=== PATIENT | female | born 1945 | race Caucasian/White ===

== ENCOUNTER 2018-04-05 08:28 | Inpatient (IN) | payer OTHER, BC ==
--- NOTE | 2018-04-05 08:36 | EDPHY ---
H & P Time Seen by Provider: 04/05/18 08:34 HPI/ROS: CHIEF COMPLAINT: [] HISTORY OF PRESENT ILLNESS: [] Severity: [] Modifying factors: [] REVIEW OF SYSTEMS: Constitutional: denies: chills, fever, recent illness, recent injury EENTM: denies: blurred vision, double vision, nose congestion Respiratory: denies: cough, shortness of breath Cardiac: denies: chest pain, irregular heart rate, lightheadedness, palpitations Gastrointestinal/Abdominal: denies: abdominal pain, diarrhea, nausea, vomiting, blood streaked stools Genitourinary: denies: dysuria, frequency, hematuria, pain Musculoskeletal: denies: joint pain, muscle pain Skin: denies: lesions, rash, jaundice, bruising Neurological: denies: headache, numbness, paresthesia, tingling, dizziness, weakness Hematologic/Lymphatic: denies: blood clots, easy bleeding, easy bruising Immunologic/allergic: denies: HIV/AIDS, transplant 10 systems reviewed and negative except as noted EXAM: GENERAL: Well-appearing, well-nourished and in no acute distress. HEAD: Atraumatic, normocephalic. EYES: Pupils equal round and reactive to light, extraocular movements intact, sclera anicteric, conjunctiva are normal. ENT: TMs normal, nares patent, oropharynx clear without exudates. Moist mucous membranes. NECK: Normal range of motion, supple without lymphadenopathy or JVD. LUNGS: Breath sounds clear to auscultation bilaterally and equal. No wheezes rales or rhonchi. HEART: Regular rate and rhythm without murmurs, rubs or gallops. ABDOMEN: Soft, nontender, normoactive bowel sounds. No guarding, no rebound. No masses appreciated. BACK: No CVA tenderness, no spinal tenderness, step-offs or deformities EXTREMITIES: Normal range of motion, no pitting or edema. No clubbing or cyanosis. NEUROLOGICAL: Cranial nerves II through XII grossly intact. Normal speech, normal gait. 5/5 strength, normal movement in all extremities, normal sensation , normal reflexes PSYCH: Normal mood, normal affect. SKIN: Warm, dry, normal turgor, no visible rashes or lesions. Source: Patient, EMS Exam Limitations: No limitations Departure - Departure Referrals: Patient,NotPresent [Primary Care Provider] - As per Instructions
--- NOTE | 2018-04-05 08:40 | EDPHY ---
H & P Time Seen by Provider: 04/05/18 08:34 HPI/ROS: CHIEF COMPLAINT: Fever HISTORY OF PRESENT ILLNESS: The patient is a 72-year-old female who was brought in by EMS for a fever. She has a history of lupus, MRSA, CVA and renal failure secondary to diuretic overdose. She has chronic lower extremity edema and leg wounds that are managed by wound care. Her home health nurse found her today with a fever and slightly confused. She denies abdominal pain. She denies nausea vomiting or diarrhea. She denies chest pain or shortness of breath. She denies headache. She also has a history of multiple surgeries including appendectomy and hysterectomy as well as partial colectomy post ruptured diverticulum. She is followed by Dr[facility] for a skin tear to her lower leg. Severity: Moderate Modifying factors: None REVIEW OF SYSTEMS: Unable to obtain secondary to condition EXAM: GENERAL: Slightly confused, mumbling, obese, eyes closed HEAD: Atraumatic, normocephalic. EYES: Pupils equal round and reactive to light, extraocular movements intact, sclera anicteric, conjunctiva are normal. ENT: TMs normal, nares patent, oropharynx clear without exudates. Moist mucous membranes. NECK: Normal range of motion, supple without lymphadenopathy or JVD. LUNGS: Breath sounds clear to auscultation bilaterally and equal. No wheezes rales or rhonchi. HEART: Regular rate and rhythm without murmurs, rubs or gallops. ABDOMEN: Soft, nontender, normoactive bowel sounds. No guarding, no rebound. No masses appreciated. BACK: No CVA tenderness, no spinal tenderness, step-offs or deformities EXTREMITIES: Bilateral lower extremity edema, right side with erythema and warmth, some small blistering to the medial thigh. Consistent with cellulitis NEUROLOGICAL: Cranial nerves II through XII grossly intact. Normal speech, normal gait. 5/5 strength, normal movement in all extremities, normal sensation , normal reflexes PSYCH: Difficulty answering questions SKIN: See above no decubitus ulcers Source: Patient, EMS, Old records Exam Limitations: No limitations - Medical/Surgical History Hx Asthma: No Hx Chronic Respiratory Disease: No Hx Diabetes: No Hx Cardiac Disease: No Hx Renal Disease: Yes Hx Cirrhosis: No Hx Alcoholism: No Hx HIV/AIDS: No Hx Splenectomy or Spleen Trauma: No Other PMH: Lupus, MRSA, CVA, renal failure, appendectomy, hysterectomy, colectomy, orthopedic surgeries - Family History Significant Family History: No pertinent family hx - Social History Smoking Status: Unknown if ever smoked Alcohol Use: Sober Drug Use: None Constitutional: Initial Vital Signs Temperature (C) 38.6 C H 04/05/18 08:44 Heart Rate 93 04/05/18 08:44 Respiratory Rate 20 04/05/18 08:44 Blood Pressure 165/100 H 04/05/18 08:44 O2 Sat (%) 97 04/05/18 08:44 O2 Delivery Mode Nasal Cannula O2 (L/minute) 2 Allergies/Adverse Reactions: No Known Drug Allergies Allergy (Verified 04/05/18 08:46) Medical Decision Making - Diagnostics Imaging Results: Imaging Impressions Chest X-Ray 04/05/18 08:35 Impression: Cardiomegaly. Pulmonary vascular congestion suggests chronic congestive failure. Right shoulder dislocation.. Imaging: Discussed imaging studies w/ call or contact centre team leader Radiologist ED Course/Re-evaluation: Patient has a urinary tract infection. She also has cellulitis to right leg. I will start her on cefepime and vancomycin admit to the medical service. I spoke with the medical service who will admit to Dr. Jurado. Differential Diagnosis: Partial list of the Differential diagnosis considered include but were not limited to; cellulitis, urinary tract infection, sepsis and although unlikely based on the history and physical exam, I also considered pneumonia, meningitis. I discussed these differential diagnoses and the plan with the [ patient] as well as the usual and expected course. The [patient understands] that the diagnosis is provisional and that in medicine we are not always correct and that further workup is often warranted. Usual and customary warnings were given. All of the [patient's] questions were answered. The [ patient was] instructed to return to the emergency department should the symptoms at all worsen or return, otherwise to followup with the physician as we discussed. - Data Points Laboratory Results: Laboratory Results 04/05/18 08:30 04/05/18 08:30 04/05/18 04/05/18 04/05/18 08:55 08:50 08:30 WBC RBC Hgb Hct MCV MCH MCHC RDW Plt Count MPV Neut % (Auto) Lymph % (Auto) [place] % (Auto) Eos % (Auto) Baso % (Auto) Nucleat RBC Rel Count Absolute Neuts (auto) Absolute Lymphs (auto) Absolute Monos (auto) Absolute Eos (auto) Absolute Basos (auto) Absolute Nucleated RBC Immature Gran % Immature Gran # RBC/WBC/PLT Morphology Platelet Estimate PT INR APTT VBG Lactic Acid 1.6 mmol/L mmol/L (0.7-2.1) Sodium Potassium Chloride Carbon Dioxide Anion Gap BUN Creatinine Estimated GFR Glucose Calcium Magnesium 1.7 mg/dL mg/dL (1.6-2.3) Total Bilirubin Urine Color YELLOW Urine Appearance HAZY Urine pH 7.0 (5.0-7.5) Ur Specific [place] 1.018 (1.002-1.030) Urine Protein NEGATIVE (NEGATIVE) Urine Ketones NEGATIVE (NEGATIVE) Urine Blood NEGATIVE (NEGATIVE) Urine Nitrate POSITIVE H (NEGATIVE) Urine Bilirubin NEGATIVE (NEGATIVE) Urine Urobilinogen NEGATIVE EU EU (0.2-1.0) Ur Leukocyte Esterase TRACE H (NEGATIVE) Urine RBC 10-15 /hpf H /hpf (0-3) Urine WBC 10-15 /hpf H /hpf (0-3) Ur Epithelial Cells TRACE /lpf /lpf (NONE-1+) Urine Bacteria 4+ /hpf H /hpf (NONE SEEN) Urine Mucus TRACE /lpf /lpf (NONE-1+) Urine Glucose NEGATIVE (NEGATIVE) 04/05/18 04/05/18 04/05/18 08:30 08:30 08:30 WBC 19.48 10^3/uL H 10^3/uL (3.80-9.50) RBC 4.30 10^6/uL 10^6/uL (4.18-5.33) Hgb 12.5 g/dL L g/dL (12.6-16.3) Hct 38.4 % % (38.0-47.0) MCV 89.3 fL fL (81.5-99.8) MCH 29.1 pg pg (27.9-34.1) MCHC 32.6 g/dL g/dL (32.4-36.7) RDW 15.0 % % (11.5-15.2) Plt Count 253 10^3/uL 10^3/uL (150-400) MPV 10.9 fL fL (8.7-11.7) Neut % (Auto) 90.4 % H % (39.3-74.2) Lymph % (Auto) 2.4 % L % (15.0-45.0) [place] % (Auto) 5.5 % % (4.5-13.0) Eos % (Auto) 0.5 % L % (0.6-7.6) Baso % (Auto) 0.4 % % (0.3-1.7) Nucleat RBC Rel Count 0.0 % % (0.0-0.2) Absolute Neuts (auto) 17.61 10^3/uL H 10^3/uL (1.70-6.50) Absolute Lymphs (auto) 0.47 10^3/uL L 10^3/uL (1.00-3.00) Absolute Monos (auto) 1.07 10^3/uL H 10^3/uL (0.30-0.80) Absolute Eos (auto) 0.10 10^3/uL 10^3/uL (0.03-0.40) Absolute Basos (auto) 0.08 10^3/uL 10^3/uL (0.02-0.10) Absolute Nucleated RBC 0.00 10^3/uL 10^3/uL (0-0.01) Immature Gran % 0.8 % % (0.0-1.1) Immature Gran # 0.16 10^3/uL H 10^3/uL (0.00-0.10) RBC/WBC/PLT Morphology TNP Platelet Estimate TNP PT 13.9 SEC SEC (12.0-15.0) INR 1.05 (0.83-1.16) APTT 25.5 SEC SEC (23.0-38.0) VBG Lactic Acid Sodium 138 mEq/L mEq/L (135-145) Potassium 2.9 mEq/L L mEq/L (3.3-5.0) Chloride 94 mEq/L L mEq/L (97-110) Carbon Dioxide 33 mEq/l H mEq/l (22-31) Anion Gap 11 mEq/L mEq/L (8-16) BUN 24 mg/dL H mg/dL (7-23) Creatinine 0.9 mg/dL mg/dL (0.6-1.0) Estimated GFR > 60 Glucose 119 mg/dL H mg/dL (70-100) Calcium 9.4 mg/dL mg/dL (8.5-10.4) Magnesium Total Bilirubin 0.6 mg/dL mg/dL (0.1-1.4) Urine Color Urine Appearance Urine pH Ur Specific [place] Urine Protein Urine Ketones Urine Blood Urine Nitrate Urine Bilirubin Urine Urobilinogen Ur Leukocyte Esterase Urine RBC Urine WBC Ur Epithelial Cells Urine Bacteria Urine Mucus Urine Glucose Medications Given: Acetaminophen (Tylenol) 650 mg PO Q4HRS PRN PRN Reason: Pain, Mild/Fever, Can Take PO Stop: 10/02/18 10:50 Last Admin: 04/05/18 11:25 Dose: 650 mg Oxycodone HCl (Oxycodone Ir) 5 mg PO Q4HRS PRN PRN Reason: Pain, Severe Able to Take PO Stop: 04/15/18 12:53 Last Admin: 04/05/18 14:06 Dose: 5 mg Discontinued Medications Hydromorphone HCl (Dilaudid) 0.5 mg IVP EDNOW ONE Stop: 04/05/18 10:42 Last Admin: 04/05/18 10:43 Dose: 0.5 mg Hydromorphone HCl (Dilaudid) 0.5 mg IVP EDNOW ONE Stop: 04/05/18 11:06 Last Admin: 04/05/18 11:08 Dose: 0.5 mg Potassium Chloride (Potassium Cl 10 Meq (Premix)) 100 mls @ 100 mls/hr IV EDNOW ONE Stop: 04/05/18 10:59 Last Admin: 04/05/18 10:22 Dose: 100 mls Magnesium Sulfate (Magnesium Sulf 2 Gm (Premix)) 50 mls @ 50 mls/hr IV EDNOW ONE Stop: 04/05/18 10:59 Last Admin: 04/05/18 10:18 Dose: 50 mls Ceftriaxone Sodium/Dextrose (Rocephin 1 Gm (Premix)) 50 mls @ 100 mls/hr IV EDNOW ONE PRN Reason: Protocol Stop: 04/05/18 10:32 Last Admin: 04/05/18 10:14 Dose: 50 mls Vancomycin HCl 1 gm/ Sodium (Chloride) 250 mls @ 250 mls/hr IV ONCE ONE Stop: 04/05/18 11:29 Last Admin: 04/05/18 10:58 Dose: 250 mls Potassium Chloride (Potassium Chloride Oral Liquid) 20 meq PO EDNOW ONE Stop: 04/05/18 10:01 Last Admin: 04/05/18 10:15 Dose: 20 meq Departure - Departure Disposition: [facility] Acute Clinical Impression: Cellulitis of right leg, Hypokalemia Urinary tract infection Qualifiers: Urinary tract infection type: acute cystitis Hematuria presence: without hematuria Qualified Code(s): N30.00 - Acute cystitis without hematuria Condition: Fair
[2018-04-05 08:49] LABS: PLATELET COUNT 253 10^3/uL (150-400)
[2018-04-05 08:56] LABS: INR 1.05 (0.83-1.16); PROTIME(PATIENT) 13.9 SEC (12.0-15.0)
[2018-04-05] MEDS ORDERED: MAGNESIUM SULF 2 GM/WATER 50 ML IV ONE (10:00)
[2018-04-05] MEDS ORDERED: POTASSIUM Cl (KCl) 100 ML IV ONE (10:00)
[2018-04-05] MEDS ORDERED: POTASSIUM CL 20 MEQ/15 ML UDCUP PO ONE (10:00)
[2018-04-05] MEDS ORDERED: VANCOMYCIN HCL/NORMAL SALINE 250 ML IV ONE (10:04)
[2018-04-05] MEDS ORDERED: VANCOMYCIN 1 GM in NS 250 ML IV ONE (10:30)
[2018-04-05] MEDS ORDERED: HYDROmorphONE/DILAUDID 1 MG/ML INJ IVP ONE ×2 (10:41→11:05)
[2018-04-05] MEDS ORDERED: ONDANSETRON 4 MG/2 ML VIAL IVP PRN (10:51)
[2018-04-05] MEDS ORDERED: ONDANSETRON DISINTEGRATING 4 MG TAB PO PRN (10:51)
[2018-04-05] MEDS ORDERED: ACETAMINOPHEN 325 MG TAB PO PRN (10:51)
[2018-04-05] MEDS ORDERED: oxyCODONE IR 5 MG TAB PO PRN (12:54)
--- NOTE | 2018-04-05 13:26 | ASMTCMCOM ---
CM Note CM Note Notes: Chart reviewed. 72 year old female admitted via ED with fever after her C RN found her febrile and confused. Has POA per legal indicators, Kaveh Johnson [phone]. Plan of care TBD. Plan: TBD Date Signed: 04/05/2018 01:26 PM Electronically Signed By:Silvia Klein RN
--- NOTE | 2018-04-05 15:54 | ASMTCMCOM ---
CM Note CM Note Notes: Met with patient who reports she lives in a home and everything is on one level. She tells me her neighbor Kaveh Johnson is her caregiver and POA. She has [facility]. Plan of care undetermined at this time. CM to follow for needs. Will place referral in [facility] for her [facility] [employer]. Plan: TBD Date Signed: 04/05/2018 03:52 PM Electronically Signed By:Silvia Klein RN
--- NOTE | 2018-04-05 17:18 | PDGENHP ---
History and Physical - Chief Complaint fever - History of Present Illness 72yo F with SLE on plaquenil, chronic pain on opioids, venous insufficiency/ lower extremity wounds followed by Dr Gerber in ID clinic presents from home at [facility] wound RN due to fever and confusion. Patient is poor historian and not able to offer many details. She thinks she was feeling ok yesterday. Hasn't noticed any drainage from her right leg wounds, which are chronic. No significant increase in pain. She does note that her right leg is red which she attributes to her neuropathy. She denies fevers. Wants to go home. In the ED, she was found to have a fever with leukocytosis as well as RLE erythema. She was also noted to have an infected-appearing UA but denies any urinary symptoms. She was given a dose of vancomycin and ceftriaxone and admitted for further management. History Information - Allergies/Home Medication List Allergies/Adverse Reactions: No Known Drug Allergies Allergy (Verified 04/05/18 08:46) Home Medications: Aspirin [Aspirin 81mg (*)] 81 mg PO DAILY 04/05/18 [Last Taken Unknown] Atorvastatin Calcium [Lipitor 10 mg (*)] 10 mg PO DAILY 04/05/18 [Last Taken Unknown] Dexlansoprazole [Dexilant] 60 mg PO BID 04/05/18 [Last Taken Unknown] Estradiol [Estradiol 1 MG (*)] 1 mg PO DAILY 04/05/18 [Last Taken Unknown] Furosemide [Lasix 40 MG (*)] 40 mg PO DAILY 04/05/18 [Last Taken Unknown] Gabapentin [Neurontin 100 MG (*)] 400 - 500 mg PO HS 04/05/18 [Last Taken Unknown] Herbals/Supplements -Info Only 1 ea PO DAILY 04/05/18 [Last Taken Unknown] Hydrocodone/Acetaminophen [Blanket 5/325 (*)] 1 - 2 tab PO Q4H PRN 04/05/18 [Last Taken Unknown] Hydroxychloroquine Sulfate [Plaquenil 200 mg (*)] 200 mg PO BID 04/05/18 [Last Taken Unknown] Indapamide [Indapamide 2.5 mg (*)] 2.5 mg PO DAILY 04/05/18 [Last Taken Unknown] Lactobacillus Acidophilus [ACIDOPHILUS] 2 each PO BID 04/05/18 [Last Taken Unknown] Magnesium Oxide [Magnesium] 500 mg PO HS 04/05/18 [Last Taken Unknown] Naloxegol Oxalate [Movantik] 25 mg PO DAILY 04/05/18 [Last Taken Unknown] Polyethylene Glycol 3350 [Miralax 17 gm (*)] 17 gm PO DAILY 04/05/18 [Last Taken Unknown] No.137/Iron/Folic Acd [ Vitamin Tablet] 1 each PO DAILY [Last Taken Unknown] Sennosides/Docusate Sodium [Senna-S Tablet] 1 - 2 each PO DAILY PRN 04/05/18 [ Last Taken Unknown] medroxyPROGESTERone ACETATE [Medroxyprogesterone Acetate] 2.5 mg PO DAILY [Last Taken Unknown] oxyCODONE HCL [Oxycontin] 20 mg PO Q12H 04/05/18 [Last Taken Unknown] I have personally reviewed and updated: family history, medical history, social history, surgical history - Past Medical History Additional medical history: SLE/?RA, CVA, chronic LE edema and LE wounds, chronic pain on opioids, paroxysmal atrial fibrillation, L MSSA knee infection and bacteremia, Charcot arthropathy, peripheral neuropathy, GERD, anemia, R shoulder subluxation - Surgical History Additional surgical history: C3-7 and L4-5 spinal fusion, sigmoid colectomy d/t ruptured diverticulum, hernia repair, right total knee arthroplasty, left total knee arthroplasty s/p explantation and placement of spacer, L shoulder surgery, hysterectomy and BSO, - Family History Additional family history: father - kidney and colon cancer, Alzheimer's - Social History Smoking Status: Never smoked Alcohol Use: None Drug Use: None Review of Systems Review of Systems: ROS: 10pt was reviewed & negative except for what was stated in HPI & below Physical Exam Physical Exam: Temp Pulse Resp BP Pulse Ox 36.9 C 87 20 114/69 90 L 04/05/18 15:32 04/05/18 11:52 04/05/18 11:52 04/05/18 11:52 04/05/18 11:52 O2 (L/minute) 2.5 Constitutional: no apparent distress, not in pain, obese Eyes: PERRL, anicteric sclera, EOMI Ears, Nose, Mouth, Throat: no oral mucosal ulcers, dry mucous membranes Cardiovascular: regular rate and rhythym, no murmur, rub, or gallop, JVD ( unable to assess due to habitus), edema (chronic venous stasis changes to BLE) Respiratory: no respiratory distress, no rales or rhonchi, clear to auscultation Gastrointestinal: normoactive bowel sounds, soft, non-tender abdomen, no palpable masses Genitourinary: no bladder fullness, no bladder tenderness Skin: other (RLE venous stasis with significant xerosis and erythema from thigh down to foot, area of denuded skin on dorsal aspect of right foot) Neurologic: AAOx3 Lymph, Heme, Immunologic: other (no inguinal ISMAEL), No lymphangitic streaking Lab Data & Imaging Review 04/05/18 08:30 04/05/18 08:30 WBC 19.48 10^3/uL (3.80-9.50) H 04/05/18 08:30 RBC 4.30 10^6/uL (4.18-5.33) 04/05/18 08:30 Hgb 12.5 g/dL (12.6-16.3) L 04/05/18 08:30 Hct 38.4 % (38.0-47.0) 04/05/18 08:30 MCV 89.3 fL (81.5-99.8) 04/05/18 08:30 MCH 29.1 pg (27.9-34.1) 04/05/18 08:30 MCHC 32.6 g/dL (32.4-36.7) 04/05/18 08:30 RDW 15.0 % (11.5-15.2) 04/05/18 08:30 Plt Count 253 10^3/uL (150-400) 04/05/18 08:30 MPV 10.9 fL (8.7-11.7) 04/05/18 08:30 Neut % (Auto) 90.4 % (39.3-74.2) H 04/05/18 08:30 Lymph % (Auto) 2.4 % (15.0-45.0) L 04/05/18 08:30 [place] % (Auto) 5.5 % (4.5-13.0) 04/05/18 08:30 Eos % (Auto) 0.5 % (0.6-7.6) L 04/05/18 08:30 Baso % (Auto) 0.4 % (0.3-1.7) 04/05/18 08:30 Nucleat RBC Rel Count 0.0 % (0.0-0.2) 04/05/18 08:30 Absolute Neuts (auto) 17.61 10^3/uL (1.70-6.50) H 04/05/18 08:30 Absolute Lymphs (auto) 0.47 10^3/uL (1.00-3.00) L 04/05/18 08:30 Absolute Monos (auto) 1.07 10^3/uL (0.30-0.80) H 04/05/18 08:30 Absolute Eos (auto) 0.10 10^3/uL (0.03-0.40) 04/05/18 08:30 Absolute Basos (auto) 0.08 10^3/uL (0.02-0.10) 04/05/18 08:30 Absolute Nucleated RBC 0.00 10^3/uL (0-0.01) 04/05/18 08:30 Immature Gran % 0.8 % (0.0-1.1) 04/05/18 08:30 Immature Gran # 0.16 10^3/uL (0.00-0.10) H 04/05/18 08:30 RBC/WBC/PLT Morphology TNP 04/05/18 08:30 Platelet Estimate TNP 04/05/18 08:30 PT 13.9 SEC (12.0-15.0) 04/05/18 08:30 INR 1.05 (0.83-1.16) 04/05/18 08:30 APTT 25.5 SEC (23.0-38.0) 04/05/18 08:30 VBG Lactic Acid 1.6 mmol/L (0.7-2.1) 04/05/18 08:50 Sodium 138 mEq/L (135-145) 04/05/18 08:30 Potassium 2.9 mEq/L (3.3-5.0) L 04/05/18 08:30 Chloride 94 mEq/L (97-110) L 04/05/18 08:30 Carbon Dioxide 33 mEq/l (22-31) H 04/05/18 08:30 Anion Gap 11 mEq/L (8-16) 04/05/18 08:30 BUN 24 mg/dL (7-23) H 04/05/18 08:30 Creatinine 0.9 mg/dL (0.6-1.0) 04/05/18 08:30 Estimated GFR > 60 04/05/18 08:30 Glucose 119 mg/dL (70-100) H 04/05/18 08:30 Calcium 9.4 mg/dL (8.5-10.4) 04/05/18 08:30 Magnesium 1.7 mg/dL (1.6-2.3) 04/05/18 08:30 Total Bilirubin 0.6 mg/dL (0.1-1.4) 04/05/18 08:30 Urine Color YELLOW 04/05/18 08:55 Urine Appearance HAZY 04/05/18 08:55 Urine pH 7.0 (5.0-7.5) 04/05/18 08:55 Ur Specific [place] 1.018 (1.002-1.030) 04/05/18 08:55 Urine Protein NEGATIVE (NEGATIVE) 04/05/18 08:55 Urine Ketones NEGATIVE (NEGATIVE) 04/05/18 08:55 Urine Blood NEGATIVE (NEGATIVE) 04/05/18 08:55 Urine Nitrate POSITIVE (NEGATIVE) H 04/05/18 08:55 Urine Bilirubin NEGATIVE (NEGATIVE) 04/05/18 08:55 Urine Urobilinogen NEGATIVE EU (0.2-1.0) 04/05/18 08:55 Ur Leukocyte Esterase TRACE (NEGATIVE) H 04/05/18 08:55 Urine RBC 10-15 /hpf (0-3) H 04/05/18 08:55 Urine WBC 10-15 /hpf (0-3) H 04/05/18 08:55 Ur Epithelial Cells TRACE /lpf (NONE-1+) 04/05/18 08:55 Urine Bacteria 4+ /hpf (NONE SEEN) H 04/05/18 08:55 Urine Mucus TRACE /lpf (NONE-1+) 04/05/18 08:55 Urine Glucose NEGATIVE (NEGATIVE) 04/05/18 08:55 Visualized and Interpreted imaging results: Yes Interpretation: CXR: poor inspiratory effort, cardiomegaly, cephalization of vessels consistent with pulmonary edema, no effusion or infiltrate (interpreted by me) Assessment & Plan Assessment: 72yo F with SLE on plaquenil, chronic pain on opioids, venous insufficiency/ lower extremity wounds followed by Dr Gerber in ID clinic presents from home at [facility] of wound RN due to fever found to have RLE erythema. Plan: #RLE cellulitis: Not septic appearing. Has chronic edema and wounds which are portal of entry. Consistent with Strep infection but there has been reports of prior MRSA so will cover for that. - Vancomycin, trough goal 10-15 - ID consulted (Chadwick Salazar) - Follow blood cultures, WBC, fever curve, clinical exam - Wound care #Abnormal UA: No urinary symptoms so don't feel strongly about covering for this. S/p CTX in ED. - Follow up urine culture #Acute on chronic pain: Related to infection - IV morphine for breakthrough - Continue home oxycontin 20 BID, norco PRN #SLE: On plaquenil which we'll continue. #H/o CVA: No obvious residual deficits. Continue aspirin, statin. #Paroxysmal atrial fibrillation: Regular rate on exam. Not on AV odette agent. On aspirin as above despite increased stroke risk per outside notes. #Peripheral neuropathy: Continue gabapentin #Chronic LE edema: Holding diuretics, appears dry on exam. Diet: regular Code: full VTE ppx: LMWH PCP: none Dispo: Admit as inpatient as expect will stay >2 midnights given her comorbid conditions.
[2018-04-05] MEDS: HYDROCODONE/APAP 5/325 TAB PO PRN (17:21)
[2018-04-05] MEDS: LORazepam 2 MG/ML INJ IVP PRN ×2 (18:07→22:06)
[2018-04-05] MEDS: GABAPENTIN 300 MG CAP PO SCH (20:18)
[2018-04-05] MEDS: HYDROXYCHLOROQUINE SULFATE 200 MG TAB PO SCH (20:18)
[2018-04-05] MEDS: PANTOPRAZOLE SODIUM 40 MG TAB PO SCH (20:18)
[2018-04-05] MEDS: NS 1,000 ML IV SCH (20:21)
--- NOTE | 2018-04-05 21:07 | GCON ---
DATE OF CONSULTATION: 04/05/2018 REFERRING PHYSICIAN: Filemon Arreola MD REASON FOR CONSULTATION: Fever and leukocytosis. HISTORY OF PRESENT ILLNESS: The patient is a 72-year-old female with a past medical history of lupus on Plaquenil as well as bilateral lower extremity venous insufficiency, previously followed in the [facility], who I am asked to see in consultation for fever, leukocytosis, and confusion. T he patient is able to provide intermittent history, which is interrupted by bouts of screaming in kavitha n. The [facility] insufficiency and treate d with compression wraps. In November, she was seen for a right lower extremity skin tear with significan t concomitant lymphedema. This occurred after the patient had hit her leg on a wheelchair. Earlier today, the patient was seen by [facility] and noted to have fever and confusion prompting evaluation i n the emergency department. It is difficult to assess if the patient feels like her lower extremitie s have changed with regard to pain or erythema. She does not note any dysuria at time of presentatio n. Review of prior medical records reveal a history of MRSA, although there are no cultures in our ystem that document MRSA. I have reviewed [facility] and found several cultures with MSSA dating back to last year, at which point in time she appears to have had a right knee infection with MSSA and conco mitant bacteremia. The patient was given empiric vancomycin and ceftriaxone in the emergency departm ent. Laboratory testing showed a white count of 19,500 with left shift. Venous lactate was 1.6. Gi haider the above findings, I am now asked to assist in her ongoing management. PAST MEDICAL HISTORY: Lupus on chronic Plaquenil, chronic venous insufficiency, MSSA bacteremia, rep orted history of MRSA, stroke. PAST SURGICAL HISTORY: Right total knee arthroplasty, bilateral Charcot foot repair, , cerv ical spine fusion, left thumb arthroplasty, right foot reconstruction, hysterectomy, lumbar fusion, a ppendectomy, inguinal hernia repair, colectomy associated with ruptured diverticulum. CURRENT MEDICATIONS: Vancomycin 1 g IV x1, ceftriaxone 1 g IV x1, OxyContin 20 mg p.o. b.i.d., Mable nix 40 mg p.o. b.i.d., Senokot 1 p.o. daily, Plaquenil 200 mg p.o. b.i.d., Neurontin 300 mg p.o. q.h. s., Lovenox 40 mg subcu daily, Lipitor 10 mg p.o. daily, aspirin 81 mg p.o. daily. ALLERGIES: No known drug allergies. SOCIAL HISTORY: Currently cannot be obtained; review of Dr. Gerber's wound healing consult shows no tobacco, alcohol or drug use. FAMILY HISTORY: Currently cannot be obtained from patient; records showed that father had kidney and colon cancer. REVIEW OF SYSTEMS: Outside that noted in the HPI, remainder of a 10-system review cannot be obtained . PHYSICAL EXAMINATION: VITAL SIGNS: Temperature maximum 38.6, temperature current 36.9, heart rate 8 7, respiratory rate 20, blood pressure 114/69, oxygen saturation 90% on 2.5 L. GENERAL: The patient is confused, but intermittently able to answer questions appropriately. She screams frequently in p ain, particularly with movement. HEENT: There is no scleral icterus, conjunctival injection, or con junctival petechiae. Oropharynx shows dry mucous membranes. There is no nasal discharge. No tender ness over the sinuses. NECK: Supple without palpable lymphadenopathy or thyromegaly. CHEST: Clear to auscultation bilaterally without adventitious sounds. Respiratory effort is normal. CARDIOVASCU LAR: Regular rate and rhythm with a 2/6 systolic ejection murmur heard at the left and right upper s ternal borders. ABDOMEN: Soft, nontender, nondistended. There is no palpable organomegaly. Bowel sounds are present. MUSCULOSKELETAL: The right lower extremity shows faint erythema from the knee t o the foot. There is a horizontal wound healing below the knee. The knee incision is intact without erythema. There are venous insufficiency changes and desquamation of skin over the dorsal aspect of the right foot. This is exquisitely tender to palpation. Left lower extremity shows venous insuffi ciency changes and tenderness to palpation. patient has deformities of the fingers diffusely. LYMPH ATICS: No cervical or supraclavicular nodes. No lymphangitis in the right lower extremity. NEUROLO GIC: Patient is confused as outlined above. Moves all extremities without difficulty. Remainder of neurologic exam is limited. SKIN: See musculoskeletal exam. Skin is diffusely warm to palpation. There are no stigmata of endocarditis. LABORATORY DATA: White blood cell count 19.5, hematocrit 38.4, platelets 253, neutrophils 90%. Crea tinine is 0.9, bicarb 33, glucose 119, bilirubin 0.6, venous lactate 1.6. Urinalysis showing 10-15 w ellen blood cells and 10-15 red blood cells with 4+ bacteria. Blood cultures x2 sets are pending. IMAGING: Chest x-ray shows no evidence of pneumonia. IMPRESSION: 1. Sepsis: Likely associated with right lower extremity skin and soft tissue infection. Appearance appears most compatible with beta-hemolytic streptococci. Records reveal history of methicillin-res istant Staphylococcus aureus, although I cannot document this and culture results from [facility]. Those culture showed methicillin-sensitive Staphylococcus aureus . Given lack of clarity currently, we wi ll treat with vancomycin empirically pending additional culture data. Based on presentation, high rg spicion for bacteremia. 2. Pyuria: The patient denies any dysuria. Received a single dose of ceftriaxone in the emergency department, which will provide additional coverage for 24 hours. Will not add further gram-negative coverage at this point in time pending blood and urine culture data. Given absence of dysuria, this may not represent urinary tract infection. 3. Bilateral lower extremity venous insufficiency. RECOMMENDATIONS: 1. Vancomycin 1 g IV q.12 hours pending blood cultures. 2. Follow up blood and urine cultures as available. 3. IV rehydration. 4. Follow clinical response to above measures with modification of antibiotics in accordance with cu lture data and clinical course. Thank you for this consultation. We will continue to follow the patient with you. /[id number]/MODL
[2018-04-05] MEDS: VANCOMYCIN HCL/NORMAL SALINE 250 ML IV SCH (22:05)
--- NOTE | 2018-04-06 04:40 | HOSPPROG ---
Hospitalist Progress Note Assessment/Plan: XC: Blood cultures with gram negative rods, will start ceftriaxone IV. Objective: Vital Signs Temp Pulse Resp BP Pulse Ox 36.8 C 70 18 149/63 H 98 04/05/18 20:00 04/05/18 20:00 04/05/18 20:00 04/05/18 20:00 04/05/18 20:00 04/04/18 04/05/18 04/06/18 05:59 05:59 05:59 Intake Total 350 Output Total 50 Balance 300 PT 13.9 SEC (12.0-15.0) 04/05/18 08:30 INR 1.05 (0.83-1.16) 04/05/18 08:30 ICD10 Worksheet Patient Problems: Problems Problem Status Onset Urinary tract infection Acute Cellulitis of right leg Acute Hypokalemia Acute
[2018-04-06 05:35] LABS: PLATELET COUNT 197 10^3/uL (150-400)
[2018-04-06] MEDS ORDERED: POTASSIUM CL 20 MEQ TAB PO ONE (06:04)
[2018-04-06] MEDS: CEFEPIME HCL 2 GM in NS 100 ML IV SCH ×3 (06:18→21:47)
[2018-04-06] MEDS: POTASSIUM Cl (KCl) 100 ML IV SCH ×2 (06:52→08:49)
[2018-04-06] MEDS ORDERED: PROTOCOL POTASSIUM 1 DOSE MISC PRN (08:25)
[2018-04-06] MEDS: ATORVASTATIN CALCIUM 10 MG TAB PO SCH (08:48)
[2018-04-06] MEDS: PANTOPRAZOLE SODIUM 40 MG TAB PO SCH (08:48)
[2018-04-06] MEDS: HYDROXYCHLOROQUINE SULFATE 200 MG TAB PO SCH ×2 (08:48→21:40)
[2018-04-06] MEDS: ENOXAPARIN 40 MG/0.4 ML SYR SC SCH (08:49)
[2018-04-06] MEDS ORDERED: ASPIRIN 81 MG CHEWABLE TAB PO SCH (09:00)
--- NOTE | 2018-04-06 09:10 | WOCRNPDOC ---
[facility] Advanced Assessment Note - Skin Integrity Problem, Advanced Assess Right Dorsal Foot Venous Stasis Ulcer Dressing Type: Open to Air Charlene Wound Tissue: Ecchymotic, Raw, Swollen, Denuded, Venous Dermatitis, Painful /Tender Wound Bed Color: Red Wound Bed Constitution: Red/[place] - Non Granular Tissue (100%) Site Measurement - Head-to-Toe Length X Width X Depth (cm): Approximately 6x8x0.1 Skin Integrity Problem Comment: Patient states that these wounds are incredibly painful and refused to allow me to touch them. She states that they have gotten worse and claims that they are the result of gauze being weaved between her toes. Patient refuses spandigrips claiming they caused a pressure injury the last time they were applied. Patient is verbally upset that her 2-layer compression wraps that were placed by outpatient were removed. Patient has had tee as a dressing previously in outpatient and is willing to do that while in the hospital. Sabrina RN in room for care. Wound care will round again at the end of the week. Right Anterior Lower Proximal Leg Dressing Type: Open to Air Exudate Characteristic(s): None Charlene Wound Tissue: Raw, Venous Dermatitis, Painful/Tender Wound Bed Constitution: Red/[place] - Non Granular Tissue (100%) Wound Edges: Attached Site Measurement - Head-to-Toe Length X Width X Depth (cm): 4.2x0.4x0.1 Skin Integrity Problem Comment: Area of open skin that patient states is from wearing spandigrips. Unclear at this time what the exact etiology is. Patient refused to allow me to touch it given how painful it is. Sabrnia JARVIS in room for care. Wound care will round again at the end of the week.
--- NOTE | 2018-04-06 10:02 | HOSPPROG ---
Hospitalist Progress Note Assessment/Plan: 72yo F with SLE on plaquenil, chronic pain on opioids, venous insufficiency/ lower extremity wounds followed by Dr Gerber in ID clinic presents from home at [facility] of wound RN due to fever found to have RLE erythema. Now with bacteremia. #Pseudomonas aeruginosa bacteremia: 1/2 blood cultures. Suspect urinary source. Hemodynamics stable. - Cefepime started, will continue until we have susceptibilities, ID following - Await urine culture results - Gentle IVF #RLE cellulitis: Improved. Covering for MRSA with prior history although appears like Strep. - Vancomycin, trough goal 10-15 - Wound care #Acute on chronic pain: Related to leg wounds - IV morphine for breakthrough - Continue home oxycontin 20 BID, norco PRN #Deconditioning: - PT/OT #SLE: On plaquenil which we'll continue. #H/o CVA: No obvious residual deficits. Continue aspirin, statin. #Paroxysmal atrial fibrillation: Regular rate on exam. Not on AV odette agent. On aspirin as above despite increased stroke risk per outside notes. #Peripheral neuropathy: Continue gabapentin #Chronic LE edema: Holding diuretics, appears dry on exam. #Right shoulder dislocation: Noted on x-ray. This is chronic and irreducible. Not source of current pain. Diet: regular Code: full VTE ppx: LMWH PCP: none Dispo: Remain inpatient for IV antibiotics. Objective: Vital Signs Temp Pulse Resp BP Pulse Ox 36.8 C 71 12 140/54 H 98 04/06/18 07:58 04/06/18 07:58 04/06/18 07:58 04/06/18 07:58 04/06/18 07:58 Laboratory Results 04/06/18 05:06 04/06/18 05:06 04/05/18 04/06/18 04/07/18 05:59 05:59 05:59 Intake Total 1025 Output Total 55 Balance 970 PT 13.9 SEC (12.0-15.0) 04/05/18 08:30 INR 1.05 (0.83-1.16) 04/05/18 08:30 ICD10 Worksheet Patient Problems: Problems Problem Status Onset Cellulitis of right leg Acute Hypokalemia Acute Urinary tract infection Acute
[2018-04-06] MEDS: VANCOMYCIN HCL/NORMAL SALINE 250 ML IV SCH (10:37)
--- NOTE | 2018-04-06 12:41 | PCMIDPN ---
Assessment/Plan: # PsA bacteremia, unclear source. Could be urine vs RLE. No urinary symptoms. --dc vancomycin --continue high dose cefepime --await PsA sensi # RLE cellulitis and B LE venous insufficiency, recent breakdown R dorsal foot --unlikely MRSA, dc vancomycin # SLE on plaquenil meds vancomycin IV #1 cefepime 2gm IV q8H#1 micro blood cx / : PsA Ucx : pending Subjective: no urinary sx no pain LE but underling peripheral neuropathy wants discharge as soon as possible does not want to go to SNF Objective: Vital Signs Temp Pulse Resp BP Pulse Ox 36.8 C 68 18 107/51 L 98 04/06/18 11:52 04/06/18 11:52 04/06/18 11:52 04/06/18 11:52 04/06/18 11:52 Laboratory Results 04/06/18 05:06 04/06/18 11:42 04/05/18 04/06/18 04/07/18 05:59 05:59 05:59 Intake Total 1025 Output Total 55 Balance 970 - Physical Exam General Appearance: alert, no apparent distress, obese Respiratory: lungs clear, No accessory muscle use Neck: supple Cardiac/Chest: regular rate, rhythm Extremities: inflammation (Skin excoriation dorsum right foot with erythema tracking lateral calf and posterior thigh), swelling (Right greater than left), other (Scaly sloughing skin bilateral lower extremities) Abdomen: normal bowel sounds, non-tender, soft Skin: No rash Neuro/Psych: alert, normal mood/affect, oriented x 3 - Time Spent With Patient Time Spent with Patient: greater than 35 minutes Time Spent with Patient: Greater than 35 minutes spent on this patients care, greater than 50% of time spent counseling, educating, and coordinating care regarding the above mentioned plan. ICD10 Worksheet Patient Problems: Problems Problem Status Onset Cellulitis of right leg Acute Hypokalemia Acute Urinary tract infection Acute
[2018-04-06] MEDS: Naloxegol Oxalate [Movantik] 25 MG PO SCH (14:12)
[2018-04-06] MEDS: HYDROCODONE/APAP 5/325 TAB PO PRN ×2 (14:49→21:39)
--- NOTE | 2018-04-06 15:37 | PDMN ---
Medical Necessity Medical necessity: Pt meets IP criteria per MD & MCG M-300; est los >2 mn for eval/tx of pseudomonas bacteremia r/t suspected urinary source vs RLE cellulitis ; awaiting cxs; requiring further monitoring, ID/Wound Care consults, IV abx; hx lupus, CVA, chronic LE edema & wounds, AFIB, peripheral neuropathy; per order & progress note 04/06/18
--- NOTE | 2018-04-06 17:14 | ASMTCMCOM ---
CM Note CM Note Notes: Patient plan of care reviewed in rounds. She will be seen by ID. She is adamantly refusing SNF at this time. Therapies ordered but no notes yet. Plan of care still unclear at this danilo. CM to follow for needs. Plan: TBD Date Signed: 04/06/2018 05:13 PM Electronically Signed By:Silvia Klein RN
[2018-04-06] MEDS: POLYETHYLENE GLYCOL 3350 17 GM PKT PO SCH (17:43)
[2018-04-06] MEDS ORDERED: POTASSIUM CL 10 MEQ TAB PO ONE (20:53)
[2018-04-06] MEDS: SENNOSIDES/DOCUSATE SODIUM TAB PO PRN (21:38)
[2018-04-06] MEDS: GABAPENTIN 300 MG CAP PO SCH (21:39)
[2018-04-06] MEDS: DEXILANT 60MG PO SCH (21:47)
[2018-04-07] MEDS: LORazepam 2 MG/ML INJ IVP PRN ×2 (00:34→14:15)
[2018-04-07] MEDS: CEFEPIME HCL 2 GM in NS 100 ML IV SCH ×2 (06:24→14:09)
[2018-04-07] MEDS: NS 1,000 ML IV SCH (06:24)
[2018-04-07] MEDS ORDERED: POTASSIUM CL 10 MEQ TAB PO ONE ×2 (07:38→19:56)
[2018-04-07] MEDS: Naloxegol Oxalate [Movantik] 25 MG PO SCH (07:59)
[2018-04-07] MEDS: POLYETHYLENE GLYCOL 3350 17 GM PKT PO SCH (08:31)
[2018-04-07] MEDS: ENOXAPARIN 40 MG/0.4 ML SYR SC SCH (08:31)
[2018-04-07] MEDS: ATORVASTATIN CALCIUM 10 MG TAB PO SCH (08:31)
[2018-04-07] MEDS: ASPIRIN EC 81 MG TAB PO SCH (08:33)
[2018-04-07] MEDS: HYDROXYCHLOROQUINE SULFATE 200 MG TAB PO SCH ×2 (08:33→21:58)
[2018-04-07] MEDS: DEXILANT 60MG PO SCH ×2 (09:00→21:59)
--- NOTE | 2018-04-07 12:02 | HOSPPROG ---
Hospitalist Progress Note Assessment/Plan: 72yo F with SLE on plaquenil, chronic pain on opioids, venous insufficiency/ lower extremity wounds followed by Dr Gerber in ID clinic presents from home at [facility] of wound RN due to fever found to have RLE erythema. Now with bacteremia. #Pseudomonas aeruginosa bacteremia: 1/2 blood cultures. Urine vs skin source; UCx with 2 species of GNRs but not significant amount. Not septic. - Continue cefepime until senstivities return, ID following #RLE cellulitis: Improved/stable. Unlikely MRSA, covering Strep. - Abx as above - Wound care #Deconditioning: - Patient refusing SNF - PT/OT #Chronic LE edema: - Discontinued IVF - Hold diuretics another day #Acute on chronic pain: Related to leg wounds - IV morphine for breakthrough - Continue home oxycontin 20 BID, norco PRN #SLE: On plaquenil which we'll continue. #H/o CVA: No obvious residual deficits. Continue aspirin, statin. #Paroxysmal atrial fibrillation: Regular rate on exam. Not on AV odette agent. On aspirin as above despite increased stroke risk per outside notes. #Peripheral neuropathy: Decrease gabapentin to 200mg qhs #Right shoulder dislocation: Noted on x-ray. This is chronic and irreducible. Not source of current pain. #Insomnia: On ambien chronically. Diet: regular Code: full VTE ppx: LMWH PCP: none Dispo: Remain inpatient for IV antibiotics. Patient refusing SNF, will renew/ set up home health as much as possible. Subjective: Had some confusion last night, felt like she needs to back off gabapentin a little. No change in leg redness/symptoms. No fevers. Wondering when she cn go home. Objective: Vital Signs Temp Pulse Resp BP Pulse Ox 36.8 C 77 19 112/53 L 93 04/07/18 11:40 04/07/18 11:40 04/07/18 11:40 04/07/18 11:40 04/07/18 11:40 Laboratory Results 04/07/18 04:46 04/07/18 04:46 04/06/18 04/07/18 04/08/18 05:59 05:59 05:59 Intake Total 1025 875 Output Total 55 800 Balance 970 75 PT 13.9 SEC (12.0-15.0) 04/05/18 08:30 INR 1.05 (0.83-1.16) 04/05/18 08:30 - Physical Exam Constitutional: no apparent distress, obese Eyes: PERRL, anicteric sclera, EOMI Ears, Nose, Mouth, Throat: moist mucous membranes, hearing normal, ears appear normal, no oral mucosal ulcers Cardiovascular: regular rate and rhythym, no murmur, rub, or gallop Respiratory: no respiratory distress, no rales or rhonchi, clear to auscultation Gastrointestinal: normoactive bowel sounds, soft, non-tender abdomen, no palpable masses Genitourinary: no bladder fullness, no bladder tenderness, no renal bruits Skin: other (BLE chronic venous stasis changes, area of denuded skin on dorsal aspect of right foot, right ortiz wound covered) Musculoskeletal: full muscle strength, no muscle tenderness, normal joint ROM Neurologic: AAOx3, sensation intact bilaterally Psychiatric: interacting appropriately, not anxious, not encephalopathic, thought process linear ICD10 Worksheet Patient Problems: Problems Problem Status Onset Cellulitis of right leg Acute Hypokalemia Acute Urinary tract infection Acute
[2018-04-07] MEDS: HYDROCODONE/APAP 5/325 TAB PO PRN ×3 (14:15→21:58)
[2018-04-07] MEDS ORDERED: ZOLPIDEM TARTRATE 5 MG TAB PO PRN (15:04)
--- NOTE | 2018-04-07 15:19 | ASMTCMCOM ---
CM Note CM Note Notes: Patient plan of care reviewed in rounds. She is adamantly refusing possibility of SNF. She has HHC through [facility] and would like services increased to RN/PT/HH aide and also employs [facility] caregivers to meet her needs. Awaiting final sensitivities. ID following. CM to follow. Plan: Likely to home with additional supportive services as above. Date Signed: 04/07/2018 03:19 PM Electronically Signed By:Silvia Klein RN
[2018-04-07] MEDS ORDERED: GABAPENTIN 100 MG CAP PO SCH (16:31)
--- NOTE | 2018-04-07 16:33 | PCMIDPN ---
Assessment/Plan: # PsA bacteremia, unclear source but suspect RLE cellulitis. UCx goes against urinary source --continue high dose cefepime --await PsA sensi --patient is okay w PICC if needed for therapy but does not want SNF. --check Cr in AM # RLE cellulitis and B LE venous insufficiency, recent breakdown R dorsal foot. likely source bacteremia - much improved today # SLE on plaquenil meds cefepime 2gm IV q8H#2 micro blood cx 07/06 : PsA Ucx : 2 GNR <20K & 2 other species c/w nl urogen jaxson Subjective: patient feeling better no diarrhea worried about ongoing plans for compression B LE Objective: Vital Signs Temp Pulse Resp BP Pulse Ox 37.4 C 80 19 156/81 H 90 L 04/07/18 15:27 04/07/18 15:27 04/07/18 15:27 04/07/18 15:27 04/07/18 15:27 Laboratory Results 04/07/18 04:46 04/07/18 04:46 04/06/18 04/07/18 04/08/18 05:59 05:59 05:59 Intake Total 1025 875 Output Total 55 800 Balance 970 75 - Physical Exam General Appearance: alert, no apparent distress EENT: No scleral icterus, No thrush Respiratory: lungs clear, No accessory muscle use Cardiac/Chest: regular rate, rhythm Extremities: pedal edema, erythema (faint erythema distal R leg; erythema on thigh resolved) Abdomen: non-tender, soft Skin: No rash Neuro/Psych: alert, normal mood/affect, oriented x 3 - Time Spent With Patient Time Spent with Patient: greater than 35 minutes (reviewed need for IV antibiotics if PsA not susceptible to FQ, only wants home adminstration) Time Spent with Patient: Greater than 35 minutes spent on this patients care, greater than 50% of time spent counseling, educating, and coordinating care regarding the above mentioned plan. ICD10 Worksheet Patient Problems: Problems Problem Status Onset Cellulitis of right leg Acute Hypokalemia Acute Urinary tract infection Acute
[2018-04-07] MEDS: FUROSEMIDE 40 MG TAB PO SCH (17:39)
[2018-04-08] MEDS: CEFEPIME HCL 2 GM in NS 100 ML IV SCH (00:15)
[2018-04-08] MEDS: SENNOSIDES/DOCUSATE SODIUM TAB PO PRN (00:55)
[2018-04-08] MEDS ORDERED: Naloxegol Oxalate [Movantik] 25 MG PO SCH (06:00)
[2018-04-08] MEDS: HYDROCODONE/APAP 5/325 TAB PO PRN ×2 (06:03→14:29)
[2018-04-08] MEDS ORDERED: CEFEPIME HCL 2 GM in NS 100 ML IV SCH (08:00)
[2018-04-08] MEDS: FUROSEMIDE 40 MG TAB PO SCH (08:23)
[2018-04-08] MEDS: POLYETHYLENE GLYCOL 3350 17 GM PKT PO SCH (08:23)
[2018-04-08] MEDS: ENOXAPARIN 40 MG/0.4 ML SYR SC SCH (08:23)
[2018-04-08] MEDS: ASPIRIN EC 81 MG TAB PO SCH (08:23)
[2018-04-08] MEDS: ATORVASTATIN CALCIUM 10 MG TAB PO SCH (08:23)
[2018-04-08] MEDS: HYDROXYCHLOROQUINE SULFATE 200 MG TAB PO SCH (08:23)
[2018-04-08] MEDS: LORazepam 2 MG/ML INJ IVP PRN ×2 (08:24→14:29)
[2018-04-08] MEDS: DEXILANT 60MG PO SCH (08:27)
--- NOTE | 2018-04-08 10:02 | PCMIDPN ---
Assessment/Plan: Assessment: Pseudomonas bacteremia in a patient with underlying lupus any immunosuppression. She has chronic lower extremity edema and open wounds mostly on the right lower extremity. Patient had acute change in the skin condition of her right foot due to excoriation. This may have been the entry point for the infection. Suspect this is not a urinary tract infection. Currently she is on IV cefepime. She is responding very well to treatment. Plan to continue this for now and await sensitivity panel to decide if she can transition over to oral fluoroquinolone such as Levaquin 750 daily for discharge. Plan: 1. Continue IV cefepime at present dose. 2. Follow up on sensitivity panel. 3. Discharge home to complete a 2 week course once final regimen is determined. 04/08/18 09:59 04/08/18 10:00 Subjective: Patient is resting in her hospital bed. She is in good spirits. She is a little frustrated by the acute infection and attributes it to aggressiveness of compression wraps on her right lower extremity. She has no further fevers or chills. Appetite is good. Objective: Cefepime # 3 Vital Signs Temp Pulse Resp BP Pulse Ox 36.6 C 76 18 132/80 H 89 L 04/08/18 07:51 04/08/18 07:51 04/08/18 07:51 04/08/18 07:51 04/08/18 04:50 Laboratory Results 04/07/18 04:46 04/08/18 05:02 04/07/18 04/08/18 04/09/18 05:59 05:59 05:59 Intake Total 875 500 Output Total 800 1500 Balance 75 -1000 - Physical Exam General Appearance: WD/WN, alert, no apparent distress, non-toxic Respiratory: lungs clear, normal breath sounds, No respiratory distress Cardiac/Chest: regular rate, rhythm, No tachycardia Skin: normal color, warm/dry, No rash Neuro/Psych: alert, normal mood/affect, oriented x 3 ICD10 Worksheet Patient Problems: Problems Problem Status Onset Cellulitis of right leg Acute Hypokalemia Acute Urinary tract infection Acute
[2018-04-08] MEDS ORDERED: POTASSIUM CL 10 MEQ TAB PO ONE (10:15)
[2018-04-08] MEDS: POTASSIUM CL 10 MEQ TAB PO ONE ×2 (10:38→10:54)
--- NOTE | 2018-04-08 11:32 | PDDCSUM ---
Discharge Summary Discharge Summary: Date of Admission: 04/05/2018 Date of Discharge: 04/08/2018 Consultants: infectious disease, wound care Disposition: discharge to home with home health RN/DAY TREATMENT CLINICIAN/ART THERAPIST/PT Discharge Diagnoses: 1. Pseudomonas aeruginosa bacteremia, presumed 2/2 2. RLE cellulitis 3. Chronic venous insufficiency and lower extremity edema with wounds 4. Deconditioning 5. Chronic pain with opioid dependence 6. SLE 7. Paroxysmal atrial fibrillation 8. H/o CVA without residual deficit 9. Peripheral neuropathy 10. Chronic right shoulder dislocation 11. Insomnia Brief Hospital Course: 72yo F with SLE on plaquenil, chronic pain on opioids, venous insufficiency/ lower extremity wounds followed in wound clinic presented from home at [facility] wound RN due to fever found to have RLE cellulitis. Blood cultures grew Pseudomonas that was pansensitive. She clinically improved with IV abx and discharged to complete 14 day course with levofloxacin. Wound care followed while inpatient and will follow up with them. Of note, she is rather deconditioned. She adamantly refused going to SNF. She has home health and these services should continue aggressively. She is on a somewhat odd array of medications including 2 diuretics. I strongly advised her to re-consider this with PCP. She is also on estrogen therapy and I advised against using this long-term, but she was not ready to discontinue. Lastly, I have decreased her gabapentin dose to 200mg qhs which she was agreeable to. Medications: Please refer to EMR for complete list. Changes this admission include addition of levofloxacin. Follow Up Plan: 1. Complete 12 more days of levofloxacin 2. Follow up in wound care clinic Physical Exam: Vitals reviewed, afebrile and normotensive. Alert and oriented, RRR, lungs clear, abdomen soft and nontender. Lower extremity chronic venous stasis with edema and much improved erythema or RLE. Area of denuded skin on dorsal surface of right foot. Mepilex over area on right ortiz.
--- NOTE | 2018-04-08 11:34 | ASMTCMCOM ---
CM Note CM Note Notes: Patient seen in interdisciplinary rounds.Her sensitivities are back and she can safely discharge on oral antibiotics. She is resistive to exhibit her physical abilities but is decisional. She has her own transportation and [facility] home health is aware of discharge. [facility] also notified of pending discharge to home. Prescription to be called in to [facility].CM available should other needs arise. Plan: Home with HHC via [facility],and [facility]. Date Signed: 04/08/2018 11:33 AM Electronically Signed By:Silvia Klein RN
[2018-04-08 12:12] VITALS: BP 135/73
--- NOTE | 2018-04-08 13:35 | PDIAF ---
- Diagnosis Code Status: Full Code - Medication Management Discharge Medications: Medications to Continue on Transfer Aspirin [Aspirin 81mg (*)] 81 mg PO DAILY 04/05/18 [Last Taken Unknown] Atorvastatin Calcium [Lipitor 10 mg (*)] 10 mg PO DAILY 04/05/18 [Last Taken Unknown] Dexlansoprazole [Dexilant] 60 mg PO BID 04/05/18 [Last Taken Unknown] Estradiol [Estradiol 1 MG (*)] 1 mg PO DAILY 04/05/18 [Last Taken Unknown] Furosemide [Lasix 40 MG (*)] 40 mg PO DAILY 04/05/18 [Last Taken Unknown] Herbals/Supplements -Info Only 1 ea PO DAILY 04/05/18 [Last Taken Unknown] Hydrocodone/Acetaminophen [[place] 5/325 (*)] 1 - 2 tab PO Q4H PRN 04/05/18 [Last Taken Unknown] Hydroxychloroquine Sulfate [Plaquenil 200 mg (*)] 200 mg PO BID 04/05/18 [Last Taken Unknown] Indapamide [Indapamide 2.5 mg (*)] 2.5 mg PO DAILY 04/05/18 [Last Taken Unknown] Lactobacillus Acidophilus [ACIDOPHILUS] 2 each PO BID 04/05/18 [Last Taken Unknown] Magnesium Oxide [Magnesium] 500 mg PO HS 04/05/18 [Last Taken Unknown] Naloxegol Oxalate [Movantik] 25 mg PO DAILY06 04/05/18 [Last Taken Unknown] Polyethylene Glycol 3350 [Miralax 17 gm (*)] 17 gm PO DAILY 04/05/18 [Last Taken Unknown] No.137/Iron/Folic Acd [ Vitamin Tablet] 1 each PO DAILY [Last Taken Unknown] Sennosides/Docusate Sodium [Senna-S Tablet] 1 - 2 each PO DAILY PRN 04/05/18 [ Last Taken Unknown] medroxyPROGESTERone ACETATE [Medroxyprogesterone Acetate] 2.5 mg PO DAILY [Last Taken Unknown] oxyCODONE HCL [Oxycontin] 20 mg PO Q12H 04/05/18 [Last Taken Unknown] Gabapentin [Neurontin 100 MG (*)] 200 mg PO HS #0 04/08/18 [Last Taken Unknown] levOFLOXACIN [Levofloxacin] 750 mg PO DAILY #12 tablet 04/08/18 [Last Taken Unknown] Discharge Medications: Refer to the Discharge Home Medication list for PRN reason. - Orders Services needed: Home Care, Registered Nurse, Certified Clothes Presser, Physical Therapy Home Care Face to Face: I certify that this patient was under my care and that I had the required [id number] encounter meeting the encounter requirements on the discharge day. My findings support the fact that the patient is homebound as defined in Home Care Face to Face Continued: CMS Chapter 7 Medicare Benefits Manual 30.1.1 , The condition of the patient is such that there exists a normal inability to leave home and consequently, leaving home would require a considerable and taxing effort. Additional Instructions: Here are your discharge instructions: 1. I have prescribed levofloxacin which you should take once daily for 12 more days. 2. Please continue to follow up with wound care and infectious disease. 3. If you develop fevers, chills or worsening leg pain, please seek medical assistance. 4. Below are your wound care instructions: Please follow up within 3- 4 weeks of discharge with outpatient [facility] if you continue to have issues with your wounds: You may reach them at [phone] for an appointment and continued management of your wounds. Please call them [facility] to schedule your appointment as they fill up quickly. If before that time you have any issues, please follow up with your PCP. Change dressing to right dorsal foot every 2 days and prn. Remove old dressing with adhesive releaser if possible. 1. Clean with ns and gauze 2. Skin prep beth wound 3. tear off a piece of tee ag or other collagen and apply a piece large enough to cover the wound beds. There shouldnt be much extra, but if there is you may overlap it onto itself. 4. Cover with Aquacel foam dressing. 5. Secure with Kerlix and medipore tape Change dressing to right anterior lower leg every 2 days and prn. 1. Clean with ns and gauze 2. Skin prep beth wound 3. Apply wound gel to wound bed 4. Cover with foam border dressing Janie Warren RN Wound Care Team - Follow Up Care Current Providers and Referrals: Patient,NotPresent [Unknown] - As per Instructions
--- NOTE | 2018-04-08 14:12 | ASMTLACE ---
LACE Length of stay for Answers: 3 days current admission Acuity / Level of Answers: Yes Care: Did the patient have an inpatient admission? Comorbidities - select Answers: Cerebrovascular disease all that apply (CVA, TIA, aneurysms, vasc ular dementia) Moderate or severe liver or renal disease Other Notes: Lupus, MRSA # of Emergency department Answers: 1-2 visits in the last 6 months Social determinants Answers: Lack of community resources and/or lack of social support (no pcp, lives alone, transportation, simon d) Score: 17 Date Signed: 04/08/2018 02:10 PM Electronically Signed By:LV Styles
--- NOTE | 2018-04-08 14:17 | ASDISCHSUM ---
Discharge Information Plan Status:Home with Home Health Medically Cleared to Leave:04/08/2018 Discharge Date:04/08/2018 CM D/C Disposition:[facility] Health Service [facility]C Disposition:[id number] Projected Discharge Date:04/08/2018 11:00 AM Transportation at D/C:Other Discharge Delay Reason: Follow-Up Date:04/08/2018 11:00 AM Discharge Slot: Final Diagnosis: Placement Information Referral Type:*Home Health Care Services Referral ID:[id number] Provider Name:[facility] (formerly [facility]) Address 1:[address] [address] Address 2: City:[place] Selection Factors: State:[place] Patient Contact Information Contact Name:JANES Relationship:Other Address: Work Phone: City: [facility] Phone: [facility] Code: Email: Financial Information Financial Class:Medicare Primary Plan Desc:MEDICARE INPATIENT Primary Plan Number:[id number] Secondary Plan Desc: OUT OF STATE [facility] Secondary Plan Number:[id number] Assessment Information LACE LACE Length of stay for Answers: 3 days current admission Acuity / Level of Answers: Yes Care: Did the patient have an inpatient admission? Comorbidities - select Answers: Cerebrovascular disease all that apply (CVA, TIA, aneurysms, vasc ular dementia) Moderate or severe liver or renal disease Other Notes: Lupus, MRSA # of Emergency department Answers: 1-2 visits in the last 6 months Social determinants Answers: Lack of community resources and/or lack of social support (no pcp, lives alone, transportation, simon d) Score: 17 Date Signed: 04/08/2018 02:10 PM Electronically Signed By:LV Styles [facility] CM Progress Note CM Note CM Note Notes: Chart reviewed. 72 year old female admitted via ED with fever after her [facility] RN found her febrile and confused. Has POA per legal indicators, Kaveh Johnson [phone]. Plan of care TBD. Plan: TBD Date Signed: 04/05/2018 01:26 PM Electronically Signed By:Silvia Klein RN [facility] CM Progress Note CM Note CM Note Notes: Met with patient who reports she lives in a home and everything is on one level. She tells me her neighbor Kaveh Johnson is her caregiver and POA. She has [facility]. Plan of care undetermined at this time. CM to follow for needs. Will place referral [facility] for her [facility] company. Plan: TBD Date Signed: 04/05/2018 03:52 PM Electronically Signed By:Silvia Klein RN [facility] CM Progress Note CM Note CM Note Notes: Patient plan of care reviewed in rounds. She will be seen by ID. She is adamantly refusing SNF at this time. Therapies ordered but no notes yet. Plan of care still unclear at this danilo. CM to follow for needs. Plan: TBD Date Signed: 04/06/2018 05:13 PM Electronically Signed By:Silvia Klein RN [facility] CM Progress Note CM Note CM Note Notes: Patient plan of care reviewed in rounds. She is adamantly refusing possibility of SNF. She has HHC through [facility] and would like services increased to RN/PT/HH aide and also employs [facility] caregivers to meet her needs. Awaiting final sensitivities. ID following. CM to follow. Plan: Likely to home with additional supportive services as above. Date Signed: 04/07/2018 03:19 PM Electronically Signed By:Silvia Klein RN [facility] CM Progress Note CM Note CM Note Notes: Patient seen in interdisciplinary rounds.Her sensitivities are back and she can safely discharge on oral antibiotics. She is resistive to exhibit her physical abilities but is decisional. She has her own transportation and [facility] aware [facility]. [facility] also notified of pending discharge to home. Prescription to be called in to [email or web address] available should other needs arise. Plan: Home with HHC via [facility],and [facility]. Date Signed: 04/08/2018 11:33 AM Electronically Signed By:Silvia Klein RN Case Management Discharge Plan Note Case Management Discharge Discharge Order Complete? Answers: Yes Patient to Obtain Answers: via Family [facility] Transportation Arranged Answers: Other Notes: Pt arranged Discharge Comments Notes: Pt is discharging home today with [facility] quality control analyst/PT/HEEL LAYER and [facility] private duty caregivers. Pt arranged her own transportation. Date Signed: 04/08/2018 02:17 PM Electronically Signed By:LV Styles Intervention Information Intervention Type:*Incorrect Registration Date of Service:04/05/2018 10:16 AM Patient Type:Inpatient Staff Member:MATHEUS Capellan Courtney Hours: Discipline: Severity: Comment: Intervention Type:*IM-Signed Date of Service:04/08/2018 02:01 PM Patient Type:Inpatient Staff Member:Isma Cline Hours: Discipline: Severity: Comment:
--- NOTE | 2018-04-08 14:18 | ASMTDCNOTE ---
Case Management Discharge Discharge Order Complete? Answers: Yes Patient to Obtain Answers: via Family Medications Transportation Arranged Answers: Other Notes: Pt arranged Discharge Comments Notes: Pt is [facility] home today [facility] fuel cell battery technician/PT/IMAGING SPECIALIST and [facility] private duty caregivers. Pt arranged her own transportation. Date Signed: 04/08/2018 02:17 PM Electronically Signed By:LV Styles
[2018-04-08] MEDS ORDERED: LORazepam 1 MG TAB PO ONE (16:32)
== END 2018-04-08 17:28 | disposition home health service (06) | DRG 603 ==
LOC: EDUNIT# → OBSVTOIN 10:52 → F1N 11:37
PROVIDERS: ADMIT Internal Medicine; ATTEND Internal Medicine
DX: L03.115 Cellulitis of right lower limb (principal); R78.81 Bacteremia; F11.20 Opioid dependence, uncomplicated; E87.6 Hypokalemia; B96.5 Pseudomonas (aeruginosa) (mallei) (pseudomallei) as the cause of diseases classified elsewhere; G89.29 Other chronic pain; I87.2 Venous insufficiency (chronic) (peripheral); M32.9 Systemic lupus erythematosus, unspecified; G47.00 Insomnia, unspecified; I48.0 Paroxysmal atrial fibrillation; G62.9 Polyneuropathy, unspecified; M24.411 Recurrent dislocation, right shoulder; Z86.73 Personal history of transient ischemic attack (TIA), and cerebral infarction without residual deficits
CPT/HCPCS: 96365; 97162-GP; 97166-GO; 97530-GP; 97535-GO; G8978-GP-CM; G8979-GP-CK; G8987-GO-CK; G8988-GO-CK; J0692; J0696; J1170; J1650; J2060; J2270; J3370; J3475; J3480

== ENCOUNTER 2018-04-16 12:38 | Observation (INO) | payer OTHER, BC ==
--- NOTE | 2018-04-16 13:59 | EDPHY ---
HPI/HX/ROS/PE/MDM Narrative: CHIEF COMPLAINT: Chronic leg wounds, seeking higher level of care. HPI: The patient is a 72 y/o female with a history of lupus, chronic pain on opioids, and lower extremity wounds returns to the ED a week after discharge complaining of difficulty caring for herself at home. She was admitted on for fever with pseudomonas bacteremia and leg cellulitis. She received IV antibiotics and was discharged on a 14-day course of Levaquin with wound care follow up. There was some discussion of discharge to a SNF, but the patient opted to return home with home care assistance. She is now unable to around her house or even transfer to the toilet with assistance, so she made a decision to return here to pursue admission to a rehab facility. She reports subjective intermittent fevers around 99F at home since discharge. REVIEW OF SYSTEMS: A comprehensive 10 system review of systems is otherwise negative aside from elements mentioned in the history of present illness. PMH: lupus, CVA, chronic lower extremity edema and wounds, chronic pain on continuous opioids, atrial fibrillation, MRSA with bacteremia, Charcot arthropathy, peripheral neuropathy, GERD, anemia, spinal fusions, sigm SOCIAL HISTORY: Lives with home direct care provider in [place]. Retired. PHYSICAL EXAM: General:Patient is alert, in no acute distress. Obese. ENT:Eyes are normal to inspection. ENT inspection normal. Neck: Normal inspection. Full range of motion. Respiratory:No respiratory distress. Breath sounds normal bilaterally. Cardiovascular: Regular rate and rhythm. Abdomen:The abdomen is nontender to palpation. There are no peritoneal signs. Back: Normal to inspection. No tenderness to palpation. Skin: Normal color. No rash. Warm and dry. Extremities: Significant bilateral lower leg edema, chronic venous stasis changes. Neuro: Oriented x3. Normal motor function. Normal sensory function. (Jonathan Dave) ED Course: Plan for case management consultation to discuss options for direct admit to SNF if possible. 1440: Patient has been evaluated extensively by oil field caser Concepcion who has provided multiple options to patient regarding direct SNF placement. Patient upset with Concepcion - refusing to go to almost all options presented to her. She continues to request inpatient admission. 1450: I spoke with patient who was on phone with her friend, a Dr. Mcallister who is apparently an ER doc. She asked me to speak with him. He tells me that he would like patient to be admitted to the hospital today because then she can likely be transferred to a specific SNF next week. I explained to him that I totally agree patient is unsafe to go home, but that I don't yet see any objective signs that the patient meets inpatient criteria. He asked me to please "find a reason to admit her." We reviewed patient's lab results and vital signs and he was unable to explain why he felt patient needed admission. Patient continues to request admission to this hospital specifically as she doesn't think any of the local rehab facilities are any good. Patient signed out to Dr. Tapia. Plan is for continued attempts at placement, likely inpatient admission if unable to place. (Jonathan Dave) MDM: Care assumed from Dr. Dave at 3:00 p.m.. The plan is that case management is attempting to find placement for the patient in a senior living facility, if that can be accomplished she will be discharged to that facility. If it cannot be accomplished she will be admitted to the hospitalist service. 1745: Case management unsuccessful of placement, admission to hospitalist. Patient does not feel safe going home. Discussed with Dr. Ross at 5:50 p.m.. (Stewart Tapia) - Data Points Laboratory Results: Laboratory Results 04/16/18 13:15 04/16/18 13:15 04/16/18 04/16/18 13:15 13:15 WBC 9.99 10^3/uL H 10^3/uL (3.80-9.50) RBC 4.47 10^6/uL 10^6/uL (4.18-5.33) Hgb 12.8 g/dL g/dL (12.6-16.3) Hct 39.6 % % (38.0-47.0) MCV 88.6 fL fL (81.5-99.8) MCH 28.6 pg pg (27.9-34.1) MCHC 32.3 g/dL L g/dL (32.4-36.7) RDW 15.0 % % (11.5-15.2) Plt Count 306 10^3/uL 10^3/uL (150-400) MPV 11.2 fL fL (8.7-11.7) Neut % (Auto) 81.9 % H % (39.3-74.2) Lymph % (Auto) 7.5 % L % (15.0-45.0) Coke % (Auto) 7.6 % % (4.5-13.0) Eos % (Auto) 1.9 % % (0.6-7.6) Baso % (Auto) 0.5 % % (0.3-1.7) Nucleat RBC Rel Count 0.0 % % (0.0-0.2) Absolute Neuts (auto) 8.18 10^3/uL H 10^3/uL (1.70-6.50) Absolute Lymphs (auto) 0.75 10^3/uL L 10^3/uL (1.00-3.00) Absolute Monos (auto) 0.76 10^3/uL 10^3/uL (0.30-0.80) Absolute Eos (auto) 0.19 10^3/uL 10^3/uL (0.03-0.40) Absolute Basos (auto) 0.05 10^3/uL 10^3/uL (0.02-0.10) Absolute Nucleated RBC 0.00 10^3/uL 10^3/uL (0-0.01) Immature Gran % 0.6 % % (0.0-1.1) Immature Gran # 0.06 10^3/uL 10^3/uL (0.00-0.10) Sodium 139 mEq/L mEq/L (135-145) Potassium 3.3 mEq/L mEq/L (3.3-5.0) Chloride 94 mEq/L L mEq/L (97-110) Carbon Dioxide 32 mEq/l H mEq/l (22-31) Anion Gap 13 mEq/L mEq/L (6-14) BUN 26 mg/dL H mg/dL (7-23) Creatinine 0.9 mg/dL mg/dL (0.6-1.0) Estimated GFR > 60 Glucose 96 mg/dL mg/dL (70-100) Calcium 10.5 mg/dL H mg/dL (8.5-10.4) General Time Seen by Provider: 04/16/18 13:44 Initial Vital Signs: Initial Vital Signs Temperature (C) 36.8 C 04/16/18 12:42 Heart Rate 73 04/16/18 12:42 Respiratory Rate 18 04/16/18 12:42 Blood Pressure 130/69 H 04/16/18 12:42 O2 Sat (%) 93 04/16/18 12:42 O2 Delivery Mode Room Air Allergies/Adverse Reactions: kiwi Allergy (Verified 04/16/18 12:48) No Known Drug Allergies Allergy (Verified 04/05/18 08:46) Home Medications: Medication Instructions Recorded Aspirin [Aspirin 81mg (*)] 81 mg PO DAILY 04/05/18 Atorvastatin Calcium [Lipitor 10 10 mg PO DAILY 04/05/18 mg (*)] Dexlansoprazole [Dexilant] 60 mg PO BID 04/05/18 Furosemide [Lasix 40 MG (*)] 40 mg PO DAILY 04/05/18 Herbals/Supplements -Info Only 1 ea PO DAILY 04/05/18 Hydrocodone/Acetaminophen [[place] 1 - 2 tab PO Q4H PRN 04/05/18 5/325 (*)] Hydroxychloroquine Sulfate 200 mg PO BID 04/05/18 [Plaquenil 200 mg (*)] Indapamide [Indapamide 2.5 mg (*)] 2.5 mg PO DAILY 04/05/18 Magnesium Oxide [Magnesium] 500 mg PO HS 04/05/18 Naloxegol Oxalate [Movantik] 25 mg PO DAILY06 04/05/18 Polyethylene Glycol 3350 [Miralax 17 gm PO DAILY 04/05/18 17 gm (*)] No.137/Iron/Folic Acd 1 each PO DAILY 04/05/18 [ Vitamin Tablet] Sennosides/Docusate Sodium 1 - 2 each PO DAILY PRN 04/05/18 [Senna-S Tablet] medroxyPROGESTERone ACETATE 2.5 mg PO DAILY 04/05/18 [Medroxyprogesterone Acetate] oxyCODONE HCL [Oxycontin] 20 mg PO Q12H 04/05/18 Albuterol [Proventil Inhaler HFA 1 - 2 puffs IH Q4H 04/16/18 (*)] Budesonide 90 Mcg INH [Pulmicort 90 mcg IH BID 04/16/18 90 Mcg Flexhaler (*)] Cetirizine [ZyrTEC 10 mg (*)] 10 mg PO DAILY 04/16/18 Cholecalciferol Vit D3 [Vitamin D3 1,000 units PO DAILY 04/16/18 (*)] Gabapentin [Neurontin 100 MG (*)] 300 mg PO HS 04/16/18 Zolpidem Tartrate [Ambien Cr] 6.25 mg PO HS 04/16/18 predniSONE 2.5 mg PO DAILY 04/16/18 Departure - Departure Disposition: [facility] Inpatient Acute Clinical Impression: chronic leg sores, Weakness Condition: Good Instructions: Chronic Wounds (ED) Referrals: Maicol Brown [Primary Care Provider] - As per Instructions Report Scribed for: Jonathan Dave Report Scribed by: Pastora Casas Date of Report: 04/16/18 Time of Report: 14:23 Physician Review and Approval Statement: Portions of this note were transcribed by an ED scribe. I personally performed the history, physical exam, and medical decision making; and confirm the accuracy of the information in the transcribed note.
[2018-04-16 14:10] LABS: PLATELET COUNT 306 10^3/uL (150-400)
--- NOTE | 2018-04-16 14:19 | ASMTCMCOM ---
CM Note CM Note Notes: Pt presented to the ED via EMS from home for chronic lower extremity wounds, decreased ability to transfer to the toilet, recent falls, and she states she overall "does not feel well," nor that it is safe for her to return home. Pt was recently admitted as Inpatient from 04/05 - 04/08/18 and discharged home w/[facility] RN/PT/INTERNAL MEDICINE SPECIALIST and [facility] (private duty non-skilled cargivers). At that time pt was refusing SNF rehab but now pt is interested and realizes she needs the extra assistance. Date Signed: 04/16/2018 02:18 PM Electronically Signed By:Concepcion Malik RN
[2018-04-16] MEDS ORDERED: ACETAMINOPHEN 325 MG TAB PO PRN (17:53)
[2018-04-16] MEDS ORDERED: ONDANSETRON DISINTEGRATING 4 MG TAB PO PRN (17:53)
[2018-04-16] MEDS ORDERED: ONDANSETRON 4 MG/2 ML VIAL IVP PRN (17:53)
[2018-04-16] MEDS ORDERED: NS W/ 20 KCl/L 1,000 ML IV SCH (18:00)
--- NOTE | 2018-04-16 18:17 | ASMTCMCOM ---
CM Note CM Note Notes: Pt stated she did not want to back to [facility], [facility], [facility], [facility] and some other SNFs due to "they are all terrible." Per last [facility] admission notes, pt has a history of becoming verbally aggressive w/staff. Referrals has been sent per pt's request to: [facility], [facility] in [place], [facility], and [facility] in [place]. Pt was accepted to [facility] but then patient said she no longer wanted to go there due to hearing in the meantime "that it is not good." Pt adamant that she wants to go to [facility] due to speaking to a friend who works for [employer] and "says it seems like a good place and to give it a chance." Spoke w/Summer at [facility] ([phone]) at various points throughout the referral process and was clear that the plan was to direct admit from the ED today. Ultimately spoke w/Adela at [facility] and she said they can most likely can accept her but not until tomorrow after their clinical team does a full review and Summer completes an on-site eval. Pt hopefully to DC to [facility] tomorrow morning/early afternoon. Level 1 PASSR completed (not sure if [facility] requires it), medication reconciliation completed. Pt may need updated PT/OT and Wound Care orders. CM to follow. Date Signed: 04/16/2018 06:16 PM Electronically Signed By:Concepcion Malik RN
[2018-04-16] MEDS ORDERED: SENNOSIDES/DOCUSATE SODIUM TAB PO PRN (18:26)
[2018-04-16] MEDS ORDERED: ALBUTEROL 60 PUFFS/8 GM MDI IH SCH (18:30)
--- NOTE | 2018-04-16 18:33 | PDGENHP ---
History and Physical - Chief Complaint acute weakness - History of Present Illness Primary care provider: Dr. Brown Primary infectious Disease: Dr. Luz Abraham HPI: 72-year-old female presents with acute weakness characterized as inability to transfer from chair to standing position with associated subjective fevers, ongoing pain located in her bilateral lower extremities, right greater than left. She reports a fall which occurred in the context of her weakness, but further description by the patient seems to elicit that the fall was more likely a sliding movement which occurred secondary to inappropriate gait belt positioning and/or use with onset of this symptom on 10/ 12 p.m. With her home, classroom aide. This inability to stand and resultant slide inspired the patient to decide that she required fci facility with rehab as her most appropriate level of care. This had been the recommendation on our most recent discharge and the patient had declined at that time. Since discharge, the patient has been seen in wound Care Clinic, she did have her legs really wrapped, and she has been adherent to her home dosage of Levaquin. Outside of her subjective fevers and chronic lower extremity pain, patient has not noticed any change in symptoms. She does endorse that her access to solids and liquids has been impaired since she has been unable to ambulate during the daytime, and she reports that she has intentionally not been taking her laxatives because she does not want to provoke a bowel movement which would require transfer. Her home private duty care is only available from 8:00 p.m. Until 9:00 a.m. The next morning and she is alone throughout the rest of the day. History Information - Allergies/Home Medication List Allergies/Adverse Reactions: kiwi Allergy (Verified 04/16/18 12:48) No Known Drug Allergies Allergy (Verified 04/05/18 08:46) Home Medications: Aspirin [Aspirin 81mg (*)] 81 mg PO DAILY 04/05/18 [Last Taken 04/16/18] Atorvastatin Calcium [Lipitor 10 mg (*)] 10 mg PO DAILY 04/05/18 [Last Taken ] Dexlansoprazole [Dexilant] 60 mg PO BID 04/05/18 [Last Taken 04/16/18] Furosemide [Lasix 40 MG (*)] 40 mg PO DAILY 04/05/18 [Last Taken 04/16/18] Herbals/Supplements -Info Only 1 ea PO DAILY 04/05/18 [Last Taken Unknown] Hydrocodone/Acetaminophen [[place] 5/325 (*)] 1 - 2 tab PO Q4H PRN 04/05/18 [Last Taken 04/16/18] Hydroxychloroquine Sulfate [Plaquenil 200 mg (*)] 200 mg PO BID 04/05/18 [Last Taken 04/16/18] Indapamide [Indapamide 2.5 mg (*)] 2.5 mg PO DAILY 04/05/18 [Last Taken 04/15/18 ] Magnesium Oxide [Magnesium] 500 mg PO HS 04/05/18 [Last Taken 04/15/18] Naloxegol Oxalate [Movantik] 25 mg PO DAILY06 04/05/18 [Last Taken 04/15/18] Polyethylene Glycol 3350 [Miralax 17 gm (*)] 17 gm PO DAILY 04/05/18 [Last Taken 04/15/18] No.137/Iron/Folic Acd [ Vitamin Tablet] 1 each PO DAILY [Last Taken 04/14/18] Sennosides/Docusate Sodium [Senna-S Tablet] 1 - 2 each PO DAILY PRN 04/05/18 [ Last Taken 04/15/18] medroxyPROGESTERone ACETATE [Medroxyprogesterone Acetate] 2.5 mg PO DAILY [Last Taken 04/15/18] oxyCODONE HCL [Oxycontin] 20 mg PO Q12H 04/05/18 [Last Taken 04/16/18] Albuterol [Proventil Inhaler HFA (*)] 1 - 2 puffs IH Q4H 04/16/18 [Last Taken Unknown] Budesonide 90 Mcg INH [Pulmicort 90 Mcg Flexhaler (*)] 90 mcg IH BID 04/16/18 [ Last Taken Unknown] Cetirizine [ZyrTEC 10 mg (*)] 10 mg PO DAILY 04/16/18 [Last Taken Unknown] Cholecalciferol Vit D3 [Vitamin D3 (*)] 1,000 units PO DAILY 04/16/18 [Last Taken 04/15/18] Gabapentin [Neurontin 100 MG (*)] 300 mg PO HS 04/16/18 [Last Taken 04/15/18] Zolpidem Tartrate [Ambien Cr] 6.25 mg PO HS 04/16/18 [Last Taken 04/15/18] predniSONE 2.5 mg PO DAILY 04/16/18 [Last Taken 04/16/18] I have personally reviewed and updated: family history, medical history, social history, surgical history - Past Medical History Additional medical history: SLE/?RA, CVA, chronic LE edema and LE wounds, chronic pain on opioids, paroxysmal atrial fibrillation, L MSSA knee infection and bacteremia, Charcot arthropathy, peripheral neuropathy, GERD, anemia, R shoulder subluxation, Pseudomonas bacteremia and lower extremity wounds - Surgical History Additional surgical history: C3-7 and L4-5 spinal fusion, sigmoid colectomy d/t ruptured diverticulum, hernia repair, right total knee arthroplasty, left total knee arthroplasty s/p explantation and placement of spacer, L shoulder surgery, hysterectomy and BSO, - Family History Additional family history: father - kidney and colon cancer, Alzheimer's - Social History Smoking Status: Never smoked Alcohol Use: None Drug Use: None Additional social history: Lives alone in [place], has nighttime private duty care Review of Systems Review of Systems: ROS: 10pt was reviewed & negative except for what was stated in HPI & below Constitutional: Reports: fever (Subjective), weakness Muscolosketal: Reports: other (Bilateral leg pain) Neurological: Reports: other (Bilateral lower extremity neuropathy) Physical Exam Physical Exam: Temp Pulse Resp BP Pulse Ox 36.8 C 70 18 115/50 L 91 L 04/16/18 12:42 04/16/18 18:06 04/16/18 18:06 04/16/18 18:26 04/16/18 18:06 Constitutional: no apparent distress, not in pain, chronically ill appearing, obese, uncomfortable Eyes: PERRL, anicteric sclera, EOMI Ears, Nose, Mouth, Throat: moist mucous membranes, hearing normal, ears appear normal, no oral mucosal ulcers Cardiovascular: regular rate and rhythym, no murmur, rub, or gallop (Distant heart sounds), edema (2+ bilateral lower extremity) Respiratory: no respiratory distress, no rales or rhonchi, clear to auscultation Gastrointestinal: normoactive bowel sounds, soft, non-tender abdomen, no palpable masses, No distension Genitourinary: no bladder fullness, no bladder tenderness Skin: other (Both legs are currently wrapped, small abrasion over the left knee without any surrounding erythema, confluent ecchymosis proximal aspect of the left forearm) Musculoskeletal: other (Full range of motion left elbow and left wrist without any pain elicited, full range of motion left shoulder without pain, impaired range of motion right shoulder but no pain elicited) Neurologic: AAOx3, weakness (Bilateral lower extremity motor strength approximately 3/5), No sensation intact bilaterally (Bilateral lower extremity paresthesias) Psychiatric: interacting appropriately, not anxious, not encephalopathic, thought process linear Lab Data & Imaging Review 04/16/18 13:15 04/16/18 13:15 WBC 9.99 10^3/uL (3.80-9.50) H 04/16/18 13:15 RBC 4.47 10^6/uL (4.18-5.33) 04/16/18 13:15 Hgb 12.8 g/dL (12.6-16.3) 04/16/18 13:15 Hct 39.6 % (38.0-47.0) 04/16/18 13:15 MCV 88.6 fL (81.5-99.8) 04/16/18 13:15 MCH 28.6 pg (27.9-34.1) 04/16/18 13:15 MCHC 32.3 g/dL (32.4-36.7) L 04/16/18 13:15 RDW 15.0 % (11.5-15.2) 04/16/18 13:15 Plt Count 306 10^3/uL (150-400) 04/16/18 13:15 MPV 11.2 fL (8.7-11.7) 04/16/18 13:15 Neut % (Auto) 81.9 % (39.3-74.2) H 04/16/18 13:15 Lymph % (Auto) 7.5 % (15.0-45.0) L 04/16/18 13:15 [place] % (Auto) 7.6 % (4.5-13.0) 04/16/18 13:15 Eos % (Auto) 1.9 % (0.6-7.6) 04/16/18 13:15 Baso % (Auto) 0.5 % (0.3-1.7) 04/16/18 13:15 Nucleat RBC Rel Count 0.0 % (0.0-0.2) 04/16/18 13:15 Absolute Neuts (auto) 8.18 10^3/uL (1.70-6.50) H 04/16/18 13:15 Absolute Lymphs (auto) 0.75 10^3/uL (1.00-3.00) L 04/16/18 13:15 Absolute Monos (auto) 0.76 10^3/uL (0.30-0.80) 04/16/18 13:15 Absolute Eos (auto) 0.19 10^3/uL (0.03-0.40) 04/16/18 13:15 Absolute Basos (auto) 0.05 10^3/uL (0.02-0.10) 04/16/18 13:15 Absolute Nucleated RBC 0.00 10^3/uL (0-0.01) 04/16/18 13:15 Immature Gran % 0.6 % (0.0-1.1) 04/16/18 13:15 Immature Gran # 0.06 10^3/uL (0.00-0.10) 04/16/18 13:15 Sodium 139 mEq/L (135-145) 04/16/18 13:15 Potassium 3.3 mEq/L (3.3-5.0) 04/16/18 13:15 Chloride 94 mEq/L (97-110) L 04/16/18 13:15 Carbon Dioxide 32 mEq/l (22-31) H 04/16/18 13:15 Anion Gap 13 mEq/L (6-14) 04/16/18 13:15 BUN 26 mg/dL (7-23) H 04/16/18 13:15 Creatinine 0.9 mg/dL (0.6-1.0) 04/16/18 13:15 Estimated GFR > 60 04/16/18 13:15 Glucose 96 mg/dL (70-100) 04/16/18 13:15 Calcium 10.5 mg/dL (8.5-10.4) H 04/16/18 13:15 Visualized and Interpreted Chest x-ray results: Yes Chest X-Ray results: other (Right shoulder dislocation, left shoulder hardware, interstitial infiltrates) Assessment & Plan Assessment: 72-year-old female presents with acute on chronic weakness in the setting of morbid obesity, lupus, bilateral lower extremity wounds Plan: 1. Weakness. Acute on chronic, new problem this provider, further workup indicated. Most likely etiology is deconditioning, exacerbated by her morbid obesity and recent hospitalization for pseudomonal lower extremity wounds -reviewed outside records including discharge summary by Dr. Kaveh Arreola, he conveys the patient was significantly deconditioned and that fci facility was recommended, she declined -despite her attempts to manage at home with nighttime private duty, the patient has come to terms with her fci facility rehab needs and she is requesting evaluation for and support at fci facility with rehab -I have discussed with case management, and the patient's referral to [facility] in [place] has been placed, they have indicated that they will have a room available tomorrow and the patient will be able to safely transfer if no other medical issues arise -will schedule her for physical and occupational therapy evaluations tomorrow if these become pertinent to her transfer -will also replete her potassium, repeating level in a.m. To ensure that her electrolytes are optimal for rehab, checking magnesium and phosphorus as well -she currently does not demonstrate any signs of worsening or ongoing infection but will repeat white blood cell count in a.m. Given her mild leukocytosis 2. Pseudomonal leg wounds. Reviewed most recent [facility]ound Care [facility] appointment with Dr. Luz Abraham from 04/14/2018, she recommends 2 layer wraps which were changed at that time as well as ongoing levofloxacin which had a start date of 04/08/2018 -continue levofloxacin 750 daily -wound care order placed if the patient remains in-house, otherwise she should have outpatient wound care clinic appointments with phone number placed in her inner agency formed tomorrow prior to discharge 3. Morbid obesity. Increases patient's risk for worsening morbidity and/or mortality, BMI of 43 4. SLE. Chronic, continue Plaquenil 5. Chronic pain with continuous opiate dependency. Continue home sustained release Oxy, hydrocodone p.r.n. 6. Paroxysmal atrial fibrillation. Currently not on systemic anticoagulation for unclear reasons, currently on aspirin for CVA prophylaxis despite her previously having a reported CVA without any residual deficits -recommend outpatient cardiology follow-up to discern whether the patient would be Watchman candidate or whether she should have a reach trial of systemic anticoagulation 1st 7. Chronic venous insufficiency. Continue wraps, patient is on 2 diuretics for unclear reasons, furosemide and indapamide, patient is unable to explain although she indicates that 1 of them may have been initiated by Dr. Flowers, query unintentional polypharmacy -would recommend streamlining her diuretics to optimize dosing of a single agent , and I would recommend furosemide 40 mg twice daily given her significant edema , discontinuing her indapamide 8. Right shoulder subluxation. Currently dislocated on most recent chest x-ray , currently non painful comma limits mobility 9. Hypokalemia. Most likely secondary to ongoing diuretic use, likely needs supplemental potassium, will provide orally to avoid additional IV fluids Diet. Cardiac Prophylaxis. High risk patient Lovenox 40 Code. Full per patient, her MD POA is Dr. Kaveh Escalona. Anticipated discharge is 04/17, pending further workup and availability of fci facility rehab tomorrow. I have discussed patient's presentation with Dr. Stewart Tapia, he and I both agree the patient is unsafe to discharge back into her home setting and she requires fci facility, observation with further therapy evaluations as above , securing safe level of care.
[2018-04-16] MEDS ORDERED: ZOLPIDEM TARTRATE 5 MG TAB PO PRN (18:42)
[2018-04-16] MEDS ORDERED: POTASSIUM CL 20 MEQ TAB PO ONE (18:44)
[2018-04-16] MEDS ORDERED: ALBUTEROL 60 PUFFS/8 GM MDI IH PRN (19:00)
[2018-04-16] MEDS ORDERED: GABAPENTIN 100 MG CAP PO SCH (21:00)
[2018-04-16] MEDS ORDERED: MAGNESIUM OXIDE 400 MG TAB PO SCH (21:00)
[2018-04-16] MEDS: Dexlansoprazole [Dexilant] 60 MG PO SCH (21:32)
[2018-04-16] MEDS: HYDROXYCHLOROQUINE SULFATE 200 MG TAB PO SCH (21:32)
[2018-04-16] MEDS: HYDROCODONE/APAP 5/325 TAB PO PRN (21:42)
[2018-04-16] MEDS: BUDESONIDE 90 MCG MDI IH SCH (22:00)
[2018-04-17] MEDS: HYDROCODONE/APAP 5/325 TAB PO PRN ×2 (03:25→08:43)
[2018-04-17] MEDS ORDERED: CALCIUM CARBONATE 500 MG CHEWABLE TAB PO PRN (03:34)
[2018-04-17 05:52] LABS: PLATELET COUNT 251 10^3/uL (150-400)
[2018-04-17] MEDS ORDERED: Naloxegol Oxalate [Movantik] 25 MG PO SCH (06:00)
[2018-04-17] MEDS ORDERED: PRENATAL VIT 1 EACH TAB PO SCH (08:00)
[2018-04-17] MEDS: BUDESONIDE 90 MCG MDI IH SCH (08:35)
[2018-04-17] MEDS ORDERED: Herbals/Supplements -Info Only PO SCH (09:00)
[2018-04-17] MEDS ORDERED: CETIRIZINE 10 MG TAB PO SCH (09:00)
[2018-04-17] MEDS ORDERED: CHOLECALCIFEROL VIT D3 1,000 UNITS TAB PO SCH (09:00)
[2018-04-17] MEDS ORDERED: POTASSIUM CL 20 MEQ TAB PO SCH (09:00)
[2018-04-17] MEDS ORDERED: FUROSEMIDE 40 MG TAB PO SCH (09:00)
[2018-04-17] MEDS ORDERED: POLYETHYLENE GLYCOL 3350 17 GM PKT PO SCH (09:00)
[2018-04-17] MEDS ORDERED: ENOXAPARIN 40 MG/0.4 ML SYR SC SCH (09:00)
[2018-04-17] MEDS ORDERED: predniSONE 5 MG TAB PO SCH (09:00)
[2018-04-17] MEDS ORDERED: ATORVASTATIN CALCIUM 10 MG TAB PO SCH (09:00)
[2018-04-17] MEDS ORDERED: ASPIRIN 81 MG CHEWABLE TAB PO SCH (09:00)
[2018-04-17] MEDS: HYDROXYCHLOROQUINE SULFATE 200 MG TAB PO SCH (10:16)
[2018-04-17] MEDS: Dexlansoprazole [Dexilant] 60 MG PO SCH (10:16)
--- NOTE | 2018-04-17 10:24 | PDIAF ---
- Diagnosis Diagnosis: LE wounds, pseudomonal infection Code Status: Full Code - Medication Management Discharge Medications: Medications to Continue on Transfer Aspirin [Aspirin 81mg (*)] 81 mg PO DAILY 04/05/18 [Last Taken 04/16/18] Atorvastatin Calcium [Lipitor 10 mg (*)] 10 mg PO DAILY 04/05/18 [Last Taken ] Dexlansoprazole [Dexilant] 60 mg PO BID 04/05/18 [Last Taken 04/16/18] Furosemide [Lasix 40 MG (*)] 40 mg PO DAILY 04/05/18 [Last Taken 04/16/18] Herbals/Supplements -Info Only 1 ea PO DAILY 04/05/18 [Last Taken Unknown] Hydrocodone/Acetaminophen [[place] 5/325 (*)] 1 - 2 tab PO Q4H PRN 04/05/18 [Last Taken 04/16/18] Hydroxychloroquine Sulfate [Plaquenil 200 mg (*)] 200 mg PO BID 04/05/18 [Last Taken 04/16/18] Indapamide [Indapamide 2.5 mg (*)] 2.5 mg PO DAILY 04/05/18 [Last Taken 04/15/18 ] Magnesium Oxide [Magnesium] 500 mg PO HS 04/05/18 [Last Taken 04/15/18] Naloxegol Oxalate [Movantik] 25 mg PO DAILY06 04/05/18 [Last Taken 04/15/18] Polyethylene Glycol 3350 [Miralax 17 gm (*)] 17 gm PO DAILY 04/05/18 [Last Taken 04/15/18] No.137/Iron/Folic Acd [ Vitamin Tablet] 1 each PO DAILY [Last Taken 04/14/18] Sennosides/Docusate Sodium [Senna-S Tablet] 1 - 2 each PO DAILY PRN 04/05/18 [ Last Taken 04/15/18] medroxyPROGESTERone ACETATE [Medroxyprogesterone Acetate] 2.5 mg PO DAILY [Last Taken 04/15/18] oxyCODONE HCL [Oxycontin] 20 mg PO Q12H 04/05/18 [Last Taken 04/16/18] Albuterol [Proventil Inhaler HFA (*)] 1 - 2 puffs IH Q4H PRN 04/16/18 [Last Taken Unknown] Budesonide 90 Mcg INH [Pulmicort 90 Mcg Flexhaler (*)] 90 mcg IH BID 04/16/18 [ Last Taken Unknown] Cetirizine [ZyrTEC 10 mg (*)] 10 mg PO DAILY 04/16/18 [Last Taken Unknown] Cholecalciferol Vit D3 [Vitamin D3 (*)] 1,000 units PO DAILY 04/16/18 [Last Taken 04/15/18] Gabapentin [Neurontin 100 MG (*)] 300 mg PO HS 04/16/18 [Last Taken 04/15/18] Zolpidem Tartrate [Ambien Cr] 6.25 mg PO HS 04/16/18 [Last Taken 04/15/18] levOFLOXACIN [levAQUIN (*)] 750 mg PO HS 04/16/18 [Last Taken 04/15/18] predniSONE 2.5 mg PO DAILY 04/16/18 [Last Taken 04/16/18] Calcium Carbonate [Tums 500MG (*)] 500 mg PO TID PRN tab.chew 04/17/18 [Last Taken Unknown] Potassium Cl [Klor-Con 10 meq (RX)] 10 meq PO DAILY #30 tab 04/17/18 [Last Taken Unknown] Discharge Medications: Refer to the Discharge Home Medication list for PRN reason. PICC Care - Routine: N/A - Orders Services needed: Registered Nurse, Physical Therapy, Occupational Therapy Diet Recommendation: cardiac -low fat low salt Wound Care Instructions: ongoing wound care to ANGY's. follow up with outpatient wound care clinic Additional Instructions: Follow up outpatient wound care clinic - Follow Up Care Current Providers and Referrals: Maicol Brown [Primary Care Provider] - As per Instructions Maicol Ba MD [Medical Doctor] - follow up in 1 week (please call to schedule appointment)
--- NOTE | 2018-04-17 10:34 | ASMTLACE ---
JAY Length of stay for Answers: 1 day current admission Acuity / Level of Answers: No Care: Did the patient have an inpatient admission? Comorbidities - select Answers: Cerebrovascular disease all that apply (CVA, TIA, aneurysms, vasc ular dementia) History of falls Opioid dependence / Chronic pain Other Notes: SLE, chronic LE edema a nd wounds, A-fib, Charcot arthropathy, bacteremia , G ERD, peripheral neuropathy, spinal fusions, various ortho surgeries, abdominal surgeries, anemia, # of Emergency department Answers: 1-2 visits in the last 6 months Score: 11 Date Signed: 04/17/2018 10:33 AM Electronically Signed By:Samantha Field RN
[2018-04-17 11:48] VITALS: BP 117/53
--- NOTE | 2018-04-17 12:12 | ASMTDCNOTE ---
Case Management Discharge Discharge Order Complete? Answers: Yes Patient to Obtain Answers: Other Notes: [facility] Medications Transportation Arranged Answers: [facility] will Pick (Date 04/17/2018 12:30 PM & Time) Case Management Transport Answers: Yes Form Complete Faxed Final Orders Answers: Yes Agency/Facility Transfer Answers: Yes Report Printed & Faxed to Receiving Agency Discharge Comments Notes: D/w MD, final orders faxed. Michelle at [facility] notified and can accept pt, RN to call report. Left message for [facility] Date Signed: 04/17/2018 12:11 PM Electronically Signed By:Samantha Field RN
--- NOTE | 2018-04-17 17:29 | ASDISCHSUM ---
Discharge Information Plan Status:SNF Medically Cleared to Leave: Discharge Date:04/17/2018 12:26 PM D/C Disposition:Shelter Facility ADT D/C Disposition:Shelter Facility Projected Discharge Date:04/17/2018 03:00 PM Transportation at D/C:ALS/BLS Discharge Delay Reason: Follow-Up Date:04/17/2018 03:00 PM Discharge Slot: Final Diagnosis: Placement Information Referral Type:*[facility]p/SNF Referral ID:[id number] Provider Name:Myron chirinos [place] Address 1:[address] [facility] Address 2: City:[place] Selection Factors: State:[place] Patient Contact Information Contact Name:JANES Relationship:Other Address: Work Phone: City: [facility] Phone: [facility] Code: Email: Financial Information Financial Class:Medicare Primary Plan Desc:MEDICARE OUTPATIENT Primary Plan Number:[id number] Secondary Plan Desc: OUT OF STATE [facility] Secondary Plan Number:[id number] Assessment Information [facility] CM Progress Note CM Note CM Note Notes: Pt presented to the ED via EMS from home for chronic lower extremity wounds, decreased ability to transfer to the toilet, recent falls, and she states she overall "does not feel well," nor that it is safe for her to return home. Pt was recently admitted as Inpatient from 04/05 - 04/08/18 and discharged home w/[facility] RN/PT/BECKY and [facility] (private duty non-skilled cargivers). At that time pt was refusing SNF rehab but now pt is interested and realizes she needs the extra assistance. Date Signed: 04/16/2018 02:18 PM Electronically Signed By:Concepcion Malik RN [facility] CM Progress Note CM Note CM Note Notes: Pt stated she did not want to back to [facility], [facility], [facility], [facility] and some other SNFs due to "they are all terrible." Per last [facility] admission notes, pt has a history of becoming verbally aggressive w/staff. Referrals has been sent per pt's request to: [facility], [facility] [place] in [place], [facility] [place], and [facility] in [place]. Pt was accepted to [facility] on [address] but then patient said she no longer wanted to go there due to hearing in the meantime "that it is not good." Pt adamant that she wants to go to [facility] [place] due to speaking to a friend who works for [employer] and "says it seems like a good place and to give it a chance." Spoke w/Summer at [facility] ([phone]) at various points throughout the referral process and was clear that the plan was to direct admit from the ED today. Ultimately spoke odessa/Adela at [facility] and she said they can most likely can accept her but not until tomorrow after their clinical team does a full review and Summer completes an on-site eval. Pt hopefully to DC to [facility] [place] tomorrow morning/early afternoon. Level 1 PASSR completed (not sure if [facility] requires it), medication reconciliation completed. Pt may need updated PT/OT and Wound Care orders. CM to follow. Date Signed: 04/16/2018 06:16 PM Electronically Signed By:Concepcion Malik RN JAY JAY Length of stay for Answers: 1 day current admission Acuity / Level of Answers: No Care: Did the patient have an inpatient admission? Comorbidities - select Answers: Cerebrovascular disease all that apply (CVA, TIA, aneurysms, vasc ular dementia) History of falls Opioid dependence / Chronic pain Other Notes: SLE, chronic LE edema a nd wounds, A-fib, Charcot arthropathy, bacteremia , G ERD, peripheral neuropathy, spinal fusions, various ortho surgeries, abdominal surgeries, anemia, # of Emergency department Answers: 1-2 visits in the last 6 months Score: 11 Date Signed: 04/17/2018 10:33 AM Electronically Signed By:Samantha Field RN Case Management Discharge Plan Note Case Management Discharge Discharge Order Complete? Answers: Yes Patient to Obtain Answers: Other Notes: [facility] Medic[facility] Transportation Arranged Answers: [facility] will Pick (Date 04/17/2018 12:30 PM & Time) Case Management Transport Answers: Yes Form Complete Faxed Final Orders Answers: Yes Agency/Facility Transfer Answers: Yes Report Printed & Faxed to Receiving Agency Discharge Comments Notes: D/w , final orders faxed. Michelle at [facility] notified and can accept MATHEUS sims to call report. [facility] Date Signed: 04/17/2018 12:11 PM Electronically Signed By:Samantha Field RN Intervention Information Intervention Type:*KALYN-Signed Date of Service:04/16/2018 06:35 PM Patient Type:Observation Staff Member:MATHEUS Malik [place] Hours:0.25 Discipline:Special Education Professor Severity: Comment:Original to be placed in pt's chart; c opy given to patient.
--- NOTE | 2018-04-17 19:01 | GDS ---
DISCHARGE DIAGNOSES: 1. Pseudomonas aeruginosa bacteremia secondary to right lower extremity cellulitis. 2. Lower extremity edema secondary to chronic venous insufficiency. 3. Lower extremity wounds. 4. Chronic pain with chronic opioid dependence. 5. Systemic lupus erythematosus. 6. Paroxysmal atrial fibrillation. 7. History of stroke without residual deficit. 8. Peripheral neuropathy. 9. Chronic right shoulder dislocation. 10. Insomnia. 11. Deconditioning. HISTORY: For details, please see history and physical dated April 16, 2018. In brief, Rod Wheatley is a 72-year-old female with history of lupus on Plaquenil, as well as chronic pain with chronic opio id dependence, who was initially admitted to the hospital April 05 due to right lower extremity cell ulitis in the setting of chronic venous stasis and lower extremity wounds. She was found to be bacte remic with Pseudomonas. Given her general deconditioning during this hospital stay, it was recommend ed she be transferred to [facility] for ongoing rehab. However, she refused this and d ischarged home to complete a 14-day course of oral Levaquin. She returns to the emergency department 1 week after discharge complaining of weakness and difficulty caring for herself at home. She reali zes she indeed does need rehab and so she is admitted for further evaluation. HOSPITAL COURSE: Patient was admitted to the med/surg unit. It was discussed that she was noted to be significantly deconditioned during her last hospitalization and the patient is now accepting the r ecommendation for correction facility rehab. She seems to be making progress from an infection standpoint with the Levaquin and this will be continued through April 21, 2018, to complete a 14-da y course. She will need ongoing wound care at correction facility. She will continue all of he r outpatient medications for her lupus. It is acknowledged that her severe obesity complicates all a spects of care with a BMI of 43. With respect to her paroxysmal atrial fibrillation, she is not on s ystemic anticoagulation but instead takes daily aspirin. She should have outpatient followup with [facility] to continue to discuss options for anticoagulation or she may be a candidate for a watchman procedure if anticoagulation is deemed to be contraindicated given her fall risk in the setting of de conditioning. Regarding her chronic venous insufficiency, she will continue wraps and diuretics. A potassium suppl ement as added given her somewhat low potassium of 3.3. On the day of discharge, her vital signs are stable with blood pressure 117/53, heart rate 64, respir atory rate 16, she is 96% on room air. DISPOSITION: Patient is discharged to correction facility in stable condition. FOLLOWUP: 1. Dr. Maicol Brown, primary care. 2. Dr. Maicol Ba, [facility]. 3. [facility]. DISCHARGE MEDICATIONS: Please see Violet Grey completed outpatient medication list. She will continue all outpatient medications as previously prescribed including levofloxacin 750 mg p.o. q.h.s. with a stop date of April 21, 2018. New medications include potassium 10 mEq p.o. daily #30, no refills, and Tums 500 mg p.o. t.i.d. p.r.n.. /[id number]/MODL
[2018-04-17] MEDS ORDERED: GABAPENTIN 300 MG CAP PO SCH (21:00)
== END 2018-04-17 12:26 ==
LOC: EDUNIT# → F3E 18:32
PROVIDERS: ADMIT Internal Medicine; ATTEND Internal Medicine
DX: L03.115 Cellulitis of right lower limb (principal); B96.5 Pseudomonas (aeruginosa) (mallei) (pseudomallei) as the cause of diseases classified elsewhere; I87.2 Venous insufficiency (chronic) (peripheral); I48.0 Paroxysmal atrial fibrillation; M32.9 Systemic lupus erythematosus, unspecified; Z86.73 Personal history of transient ischemic attack (TIA), and cerebral infarction without residual deficits; Z79.899 Other long term (current) drug therapy
CPT/HCPCS: 97166; 97530; 99285; G0378; G8987; G8988; J1650; J7512